=== PATIENT | male | born 1940 | race Caucasian/White ===

== ENCOUNTER 2016-09-30 18:13 | Emergency (ER) | payer MEDICARE, BC ==
[2016-09-30 18:34] VITALS: RESP 18
[2016-09-30] MEDS ORDERED: SODIUM CHLORIDE 0.9% 1,000 ML IV STA (18:40)
[2016-09-30] MEDS ORDERED: diphenhydrAMINE 50 MG/ML 1 ML VIAL IVP STA (18:40)
[2016-09-30] MEDS ORDERED: methylPREDNISolone SOD SUCCI 125 MG/2 ML VIAL IV STA (18:40)
[2016-09-30] MEDS ORDERED: FAMOTIDINE 20 MG/2 ML VIAL IV STA (18:40)
--- NOTE | 2016-09-30 18:45 | ED ---
Allergic Reaction HPI - General Chief complaint: Allergic Reaction Stated complaint: allergic reaction Time Seen by Provider: 09/30/16 18:36 Source: patient, RN notes reviewed Mode of arrival: ambulatory Limitations: no limitations - History of Present Illness Initial Comments: 76-year-old male presents to the emergency department with a chief complaint of ALLERGIC reaction. Patient states that today on 4:00 she noticed some right hand swelling and he noticed irritation in his throat. Patient states he felt as if his tongue was swollen as well. Patient states that seems to have improved but he just continued to have some throat irritation in the hand signs he thought that he should be seen. Patient denies any difficulty breathing. Denies any cough cold -like symptoms. He does not remember anything new or different in his house. Patient denies any recent fever, chills, shortness of breath, chest pain, back pain, abdominal pain, nausea vomiting, numbness or tingling, dysuria or hematuria, constipation or diarrhea, headaches or visual changes, or any other current symptoms. - Related Data Home Medications Medication Instructions Recorded Confirmed Aspirin 81 mg PO DAILY 10/28/13 11/26/13 Lisinopril-Hctz 20-12.5 mg 1 each PO DAILY 10/28/13 11/26/13 [Zestoretic 20-12.5] Lovastatin [Mevacor] 40 mg PO DAILY 10/28/13 11/26/13 Metoprolol Tartrate [Lopressor] 25 mg PO DAILY 10/28/13 11/26/13 Rivaroxaban [Xarelto] 10 mg PO DAILY 10/28/13 11/26/13 glyBURIDE/METFORMIN HCL 1.5 - 2 each PO DAILY 10/28/13 11/26/13 [glyBURIDE/METFORMIN HCL 5-500 mg] Previous Rx's Medication Instructions Recorded Famotidine [Pepcid] 20 mg PO BID #10 tablet 09/30/16 diphenhydrAMINE [Benadryl] 50 mg PO HS PRN #5 capsule 09/30/16 predniSONE 50 mg PO DAILY #5 tab 09/30/16 Allergies Allergy/AdvReac Type Severity Reaction Status Date / Time No Known Allergies Allergy Verified 09/30/16 19:39 Review of Systems ROS Statement: Those systems with pertinent positive or pertinent negative responses have been documented in the HPI. ROS Other: All systems not noted in ROS Statement are negative. Past Medical History Past Medical History: Diabetes Mellitus, GERD/Reflux, Hypertension, Skin Disorder Additional Past Medical History / Comment(s): AICD/PACEMAKER,DIVERTICULAR DISORDER, History of Any Multi-Drug Resistant Organisms: None Reported Past Surgical History: Heart Catheterization, Joint Replacement Additional Past Surgical History / Comment(s): COLONOSCOPY,HIP REPLACEMENT, AICD /DEFIBILLATOR INSERTION hip replacement and revision Past Anesthesia/Blood Transfusion Reactions: No Reported Reaction Smoking Status: Former smoker Past Alcohol Use History: None Reported Past Drug Use History: None Reported - Past Family History Mother Family Medical History: Unable to Obtain Father Family Medical History: Unable to Obtain General Exam Limitations: no limitations General appearance: alert, in no apparent distress Head exam: Present: atraumatic, normocephalic, normal inspection ENT exam: Present: normal exam, mucous membranes moist Neck exam: Present: normal inspection. Absent: tenderness, meningismus, lymphadenopathy Respiratory exam: Present: normal lung sounds bilaterally. Absent: respiratory distress, wheezes, rales, rhonchi, stridor Cardiovascular Exam: Present: regular rate, normal rhythm, normal heart sounds. Absent: systolic murmur, diastolic murmur, rubs, gallop, clicks Extremities exam: Present: full ROM, normal capillary refill. Absent: normal inspection (Patient does appear to have some swelling to the first second and third digit with some associated erythema to the right hand), tenderness, pedal edema, joint swelling, calf tenderness Back exam: Present: normal inspection Neurological exam: Present: alert, oriented X3, CN II-XII intact. Absent: motor sensory deficit Psychiatric exam: Present: normal affect, normal mood Skin exam: Present: warm, dry, intact, normal color. Absent: rash Course Vital Signs 09/30/16 09/30/16 18:30 19:12 Temperature 98.9 F Pulse Rate 102 H 96 Respiratory 18 18 Rate Blood Pressure 173/80 156/83 O2 Sat by Pulse 98 97 Oximetry Medical Decision Making - Medical Decision Making 76-year-old male presents emergency Department chief complaint of ALLERGIC reaction. At this time we did do Solu-Medrol Benadryl and Pepcid. Patient has had improvement of symptoms. This time we discussed searching the house for possible causes for the reaction. Discussed continuing medication as discussed previously discussed from comparison follow-up. Patient stated that he understood and all his questions have been answered. He will be discharged. Disposition Clinical Impression: Allergic reaction Disposition: HOME SELF-CARE Condition: Stable Instructions: Anaphylaxis (ED) Additional Instructions: Please use medication as discussed. Please follow up with family doctor if symptoms have not improved over the next two days. Please return to the emergency room if your symptoms increase or worsen or for any other concerns. Prescriptions: Famotidine [Pepcid] 20 mg PO BID #10 tablet diphenhydrAMINE [Benadryl] 50 mg PO HS PRN #5 capsule PRN Reason: Itching predniSONE 50 mg PO DAILY #5 tab Referrals: Oswaldo Colon MD [Primary Care Provider] - 1-2 days Time of Disposition: 19:42
[2016-09-30 19:53] VITALS: BP 132/70; PULSE 92; TEMP 97.9
== END 2016-09-30 19:51 | disposition home or self-care (01) ==
LOC: EC 18:13
DX: T78.40XA Allergy, unspecified, initial encounter (principal); E11.9 Type 2 diabetes mellitus without complications; I10 Essential (primary) hypertension; Z87.891 Personal history of nicotine dependence; Z79.82 Long term (current) use of aspirin; Z79.84 Long term (current) use of oral hypoglycemic drugs; Z79.899 Other long term (current) drug therapy; Z79.01 Long term (current) use of anticoagulants
CPT/HCPCS: 99283; 96374; 96375 ×2; 96361; J1200; J2930

== ENCOUNTER → 2017-01-09 | Outpatient (CLI) | payer MEDICARE, BC | END | disposition home or self-care (01) | LOC: LABWHC1 16:27 | PROVIDERS: ATTEND Orthopaedic Surgery | DX: T56.894A Toxic effect of other metals, undetermined, initial encounter (principal) | CPT/HCPCS: 36415 ==

== ENCOUNTER 2018-04-11 09:50 | Day surgery (SDC) | payer MEDICARE, BC ==
[2018-04-10 08:38] VITALS: BMI 25.0
[2018-04-11 10:19] VITALS: RESP 18; TEMP 97.9
[2018-04-11] MEDS ORDERED: LACTATED RINGERS 1,000 ML IV ONE (10:23)
[2018-04-11] MEDS ORDERED: LIDOCAINE 1% 20 ML VIAL (10MG/ML) FOR IV START INTRADERMA ONE (10:23)
[2018-04-11] MEDS ORDERED: PROPOFOL 10 MG/ML 20 ML VIAL IV ONE (10:28)
[2018-04-11] MEDS ORDERED: LIDOCAINE 1% INJ 10MG/ML (20 ML MDV) ONE (10:28)
[2018-04-11 10:35] LABS: Glucose,Whole Blood 92 mg/dL (75-99)
--- NOTE | 2018-04-11 10:48 | P.PCN ---
Date of Procedure: 04/11/18 Procedure(s) Performed: BRIEF HISTORY: Patient is a 77-year-old pleasant male, scheduled for an elective colonoscopy as a part of screening for colorectal neoplasia. Last colonoscopy was more than 10 years ago. PROCEDURE PERFORMED: Colonoscopy. PREOPERATIVE DIAGNOSIS: Screening for colon cancer. IV sedation per Anesthesia. PROCEDURE: After informed consent was obtained, the patient, was brought into the endoscopy unit. IV sedation was administered by Anesthesia under continuous monitoring. Digital rectal examination was normal. Initially the Olympus CF- 160 flexible video colonoscope was then inserted in the rectum, gradually advanced into the cecum without any difficulty. Careful examination was performed as the scope was gradually being withdrawn. Ileocecal valve and the appendiceal orifice were visualized and appeared normal. Prep was excellent. Mucosa of the cecum, ascending colon, transverse colon, descending colon, sigmoid colon, and rectum appeared normal. Extensive left sided diverticulosis seen. Retroflexion was performed in the rectum and no lesions were seen. The patient tolerated the procedure well. IMPRESSION: Normal-appearing colon from rectum to cecum with no evidence of colorectal neoplasia. Extensive left sided diverticulosis. RECOMMENDATIONS: Findings of this examination were discussed with the patient as well as his family. He was advised to be a high-fiber diet and take fiber supplements a regular basis..
[2018-04-11 11:27] VITALS: BP 115/56; PULSE 77
== END 2018-04-11 11:46 | disposition home or self-care (01) ==
LOC: ORWHC2ENDO 09:50
PROVIDERS: ATTEND Internal Medicine Gastroenterology
DX: Z12.11 Encounter for screening for malignant neoplasm of colon (principal); K57.30 Diverticulosis of large intestine without perforation or abscess without bleeding; I25.10 Atherosclerotic heart disease of native coronary artery without angina pectoris; K21.9 Gastro-esophageal reflux disease without esophagitis; E11.9 Type 2 diabetes mellitus without complications; I48.91 Unspecified atrial fibrillation; I10 Essential (primary) hypertension; E78.5 Hyperlipidemia, unspecified; Z79.84 Long term (current) use of oral hypoglycemic drugs; Z79.82 Long term (current) use of aspirin; Z79.899 Other long term (current) drug therapy; Z95.1 Presence of aortocoronary bypass graft; Z95.0 Presence of cardiac pacemaker; Z87.891 Personal history of nicotine dependence; Z87.442 Personal history of urinary calculi; Z85.820 Personal history of malignant melanoma of skin
CPT/HCPCS: J2001; J2704; G0121; 45378

== ENCOUNTER 2020-07-29 09:45 | Day surgery (SDC) | payer MEDICARE, BC ==
[2020-07-28 13:52] VITALS: BMI 23.8
[~2020-07-29 09:45] MED LIST: SODIUM CHLORIDE 0.9% 1,000 ML IV SCH
[2020-07-29 10:06] VITALS: RESP 16; TEMP 97.6
[2020-07-29] MEDS ORDERED: SODIUM CHLORIDE 0.9% 500 ML IV ONE (10:06)
[2020-07-29 10:08] LABS: Glucose,Whole Blood 210 mg/dL (75-99)
[2020-07-29] MEDS ORDERED: IOPAMIDOL-370 50ML BTL MISCELLANE ONE (11:11)
--- NOTE | 2020-07-29 11:20 | P.EPPROC ---
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
[2020-07-29 11:26] VITALS: BP 155/76; PULSE 70
== END 2020-07-29 11:34 | disposition home or self-care (01) ==
LOC: CATHEP 09:45
PROVIDERS: ATTEND Internal Medicine Clinical Cardiac Electrophysiology
DX: T82.897A Other specified complication of cardiac prosthetic devices, implants and grafts, initial encounter (principal); I70.8 Atherosclerosis of other arteries; I87.8 Other specified disorders of veins; Z95.810 Presence of automatic (implantable) cardiac defibrillator; I25.10 Atherosclerotic heart disease of native coronary artery without angina pectoris; I42.8 Other cardiomyopathies; I25.5 Ischemic cardiomyopathy; E11.8 Type 2 diabetes mellitus with unspecified complications; I10 Essential (primary) hypertension; I48.0 Paroxysmal atrial fibrillation; I47.1 Supraventricular tachycardia; I25.2 Old myocardial infarction; E78.5 Hyperlipidemia, unspecified; R01.1 Cardiac murmur, unspecified; E78.00 Pure hypercholesterolemia, unspecified; Z95.1 Presence of aortocoronary bypass graft; Z72.0 Tobacco use; Z79.899 Other long term (current) drug therapy; Z79.82 Long term (current) use of aspirin; Z79.84 Long term (current) use of oral hypoglycemic drugs; Z79.01 Long term (current) use of anticoagulants
CPT/HCPCS: 36005; 75820; Q9967; 76000

== ENCOUNTER 2020-11-05 16:59 | Inpatient (IN) | payer MEDICARE, BC ==
[2020-11-05] MEDS ORDERED: IPRATROPIUM-ALBUTEROL 3 ML NEB INHALATION STA (18:01)
--- NOTE | 2020-11-05 18:14 | ED ---
SOB HPI - General Chief Complaint: Shortness of Breath Stated Complaint: DIA Time Seen by Provider: 11/05/20 17:04 Source: patient, RN notes reviewed Mode of arrival: wheelchair Limitations: no limitations - History of Present Illness Initial Comments: Visit 8-year-old male smoker many years ago with a history of multiple medical issues who presents with complaints of shortness of breath this started last evening. He has exertional dyspnea no chest pain no fevers chills nausea vomiting sweats he states he can hear himself wheezing when he exhales. He has had slight cough no other complaints or modifying factors MD Complaint: shortness of breath - Related Data Home Medications Medication Instructions Recorded Confirmed Lovastatin [Mevacor] 40 mg PO W/SUPPER 10/28/13 11/05/20 Rivaroxaban [Xarelto] 20 mg PO W/SUPPER 09/30/16 11/05/20 Aspirin [Adult Low Dose Aspirin EC] 81 mg PO DAILY 04/10/18 11/05/20 Losartan Potassium [Cozaar] 100 mg PO DAILY 04/10/18 11/05/20 Metoprolol Tartrate [Lopressor] 50 mg PO BID 04/10/18 11/05/20 glipiZIDE/METFORMIN HCL 2 tab PO BID 11/05/20 11/05/20 [glipiZIDE/METFORMIN HCL 5-500 mg] Allergies Allergy/AdvReac Type Severity Reaction Status Date / Time No Known Allergies Allergy Verified 11/05/20 19:42 Review of Systems ROS Statement: Those systems with pertinent positive or pertinent negative responses have been documented in the HPI. ROS Other: All systems not noted in ROS Statement are negative. Past Medical History Past Medical History: Atrial Fibrillation, Coronary Artery Disease (CAD), Cancer, Diabetes Mellitus, GERD/Reflux, Hyperlipidemia, Hypertension, Skin Disorder Additional Past Medical History / Comment(s): skin cancer/melanoma, hx kidney stone, see Dr. Knutson's H&P. History of Any Multi-Drug Resistant Organisms: None Reported Past Surgical History: AICD, Coronary Bypass/CABG, Heart Catheterization, Joint Replacement, Pacemaker Additional Past Surgical History / Comment(s): quad bypass 2013, skin cancer removed from around left eye, cystoscopy, left hip replacement, clari cataracts. See Dr. Velázquez's H&P. Past Anesthesia/Blood Transfusion Reactions: No Reported Reaction Type of Cardiac Device: Permanent Pacemaker, AICD Device Placement Date:: 04/2007 Past Psychological History: No Psychological Hx Reported Smoking Status: Former smoker Past Alcohol Use History: None Reported Past Drug Use History: None Reported - Past Family History Father Family Medical History: Cancer Additional Family Medical History / Comment(s): "black lung cancer" General Exam - General Exam Comments Initial Comments: This is a well-developed well-nourished awake alert oriented 3 male Limitations: no limitations General appearance: alert, in no apparent distress Head exam: Present: atraumatic, normocephalic, normal inspection Eye exam: Present: normal appearance, PERRL, EOMI. Absent: scleral icterus, conjunctival injection, periorbital swelling ENT exam: Present: normal exam, mucous membranes moist Neck exam: Present: normal inspection. Absent: tenderness, meningismus, lymphadenopathy Respiratory exam: Present: wheezes, decreased breath sounds. Absent: respiratory distress, rales, rhonchi, stridor Cardiovascular Exam: Present: regular rate, normal rhythm, normal heart sounds. Absent: systolic murmur, diastolic murmur, rubs, gallop, clicks GI/Abdominal exam: Present: soft, normal bowel sounds. Absent: distended, tenderness, guarding, rebound, rigid Extremities exam: Present: normal inspection, full ROM, normal capillary refill. Absent: tenderness, pedal edema, joint swelling, calf tenderness Back exam: Present: normal inspection Neurological exam: Present: alert, oriented X3, CN II-XII intact Psychiatric exam: Present: normal affect, normal mood Skin exam: Present: warm, dry, intact, normal color. Absent: rash Course Vital Signs 11/05/20 11/05/20 11/05/20 17:14 18:31 18:41 Temperature 97.5 F L Pulse Rate 91 70 70 Respiratory 18 Rate Blood Pressure 151/90 O2 Sat by Pulse 99 Oximetry 11/05/20 11/05/20 18:49 20:23 Temperature 97.4 F L Pulse Rate 76 Respiratory 18 16 Rate Blood Pressure 173/92 O2 Sat by Pulse 96 Oximetry - Reevaluation(s) Reevaluation #1: 11/05/20 21:24 Patient did seem to get some relief and improvement after nebulizer treatment. Medical Decision Making - Medical Decision Making I did discuss findings the patient family as well as with Dr. Stevens the patient be admitted for inpatient evaluation and treatment. The patient did also mention that his pacemaker battery is beyond the usual time of service. - Lab Data Result diagrams: 11/05/20 18:14 11/05/20 18:14 Lab Results 11/05/20 11/05/20 11/05/20 Range/Units 18:14 18:14 18:14 WBC 6.9 (3.8-10.6) k/uL RBC 4.65 (4.30-5.90) m/uL Hgb 14.0 (13.0-17.5) gm/dL Hct 43.5 (39.0-53.0) % MCV 93.7 (80.0-100.0) fL MCH 30.1 (25.0-35.0) pg MCHC 32.2 (31.0-37.0) g/dL RDW 14.4 (11.5-15.5) % Plt Count 212 (150-450) k/uL MPV 9.7 Neutrophils % 66 % Lymphocytes % 19 % Monocytes % 12 % Eosinophils % 1 % Basophils % 1 % Neutrophils # 4.6 (1.3-7.7) k/uL Lymphocytes # 1.3 (1.0-4.8) k/uL Monocytes # 0.8 (0-1.0) k/uL Eosinophils # 0.1 (0-0.7) k/uL Basophils # 0.0 (0-0.2) k/uL PT 13.9 H (9.0-12.0) sec INR 1.4 H (<1.2) APTT 31.9 H (22.0-30.0) sec D-Dimer 1.71 H (<0.60) mg/L FEU Sodium 137 (137-145) mmol/L Potassium 4.6 (3.5-5.1) mmol/L Chloride 104 (98-107) mmol/L Carbon Dioxide 21 L (22-30) mmol/L Anion Gap 12 mmol/L BUN 24 H (9-20) mg/dL Creatinine 1.28 H (0.66-1.25) mg/dL Est GFR (CKD-EPI)AfAm 61 (>60 ml/min/1.73 sqM) Est GFR (CKD-EPI)NonAf 53 (>60 ml/min/1.73 sqM) Glucose 111 H (74-99) mg/dL Plasma Lactic Acid Santiago (0.7-2.0) mmol/L Calcium 10.0 (8.4-10.2) mg/dL Magnesium 1.6 (1.6-2.3) mg/dL Total Bilirubin 0.9 (0.2-1.3) mg/dL AST 49 (17-59) U/L ALT 39 (4-49) U/L Alkaline Phosphatase 90 (38-126) U/L Creatine Kinase 212 H (55-170) U/L Troponin I (0.000-0.034) ng/mL NT-Pro-B Natriuret Pep pg/mL Total Protein 7.2 (6.3-8.2) g/dL Albumin 4.4 (3.5-5.0) g/dL 11/05/20 11/05/20 11/05/20 Range/Units 18:14 18:14 18:14 WBC (3.8-10.6) k/uL RBC (4.30-5.90) m/uL Hgb (13.0-17.5) gm/dL Hct (39.0-53.0) % MCV (80.0-100.0) fL MCH (25.0-35.0) pg MCHC (31.0-37.0) g/dL RDW (11.5-15.5) % Plt Count (150-450) k/uL MPV Neutrophils % % Lymphocytes % % Monocytes % % Eosinophils % % Basophils % % Neutrophils # (1.3-7.7) k/uL Lymphocytes # (1.0-4.8) k/uL Monocytes # (0-1.0) k/uL Eosinophils # (0-0.7) k/uL Basophils # (0-0.2) k/uL PT (9.0-12.0) sec INR (<1.2) APTT (22.0-30.0) sec D-Dimer (<0.60) mg/L FEU Sodium (137-145) mmol/L Potassium (3.5-5.1) mmol/L Chloride (98-107) mmol/L Carbon Dioxide (22-30) mmol/L Anion Gap mmol/L BUN (9-20) mg/dL Creatinine (0.66-1.25) mg/dL Est GFR (CKD-EPI)AfAm (>60 ml/min/1.73 sqM) Est GFR (CKD-EPI)NonAf (>60 ml/min/1.73 sqM) Glucose (74-99) mg/dL Plasma Lactic Acid Santiago 1.6 (0.7-2.0) mmol/L Calcium (8.4-10.2) mg/dL Magnesium (1.6-2.3) mg/dL Total Bilirubin (0.2-1.3) mg/dL AST (17-59) U/L ALT (4-49) U/L Alkaline Phosphatase (38-126) U/L Creatine Kinase (55-170) U/L Troponin I 0.016 (0.000-0.034) ng/mL NT-Pro-B Natriuret Pep 5450 pg/mL Total Protein (6.3-8.2) g/dL Albumin (3.5-5.0) g/dL - EKG Data -: EKG Interpreted by Me EKG Comments: Pacemaker rate 68 appear 132 QRS 148 QT since QTC 466/495 - Radiology Data Radiology results: report reviewed (Imaging reviewed x-ray showed evidence of CHF and pleural effusion CAT scan showed no evidence of PE however there is again he evidence of PE), image reviewed Critical Care Time Critical Care Time: Yes Total Critical Care Time: 31 Critical Care Time: 31 minutes of critical care time includes initial presentation with history physical labs x-rays multiple reevaluation patient responsive therapy discuss with the patient and family regarding findings discussion with the admitting physician Dr. Stevens admission orders and documentation the above Disposition Clinical Impression: Congestive heart failure, Acute bronchospasm, Hypoxemia Disposition: ADMITTED IP TO THIS [facility] Condition: Fair Referrals: Oswaldo Colon MD [Primary Care Provider] - 1-2 days
[2020-11-05 18:36] LABS: Albumin 4.4 g/dL (3.5-5.0); Magnesium 1.6 mg/dL (1.6-2.3); Potassium 4.6 mmol/L (3.5-5.1); Total Bilirubin 0.9 mg/dL (0.2-1.3); Total Protein 7.2 g/dL (6.3-8.2)
[2020-11-05 18:41] LABS: Basophils % (A) 1 %; Eosinophils # (A) 0.1 k/uL (0-0.7); Eosinophils % (A) 1 %; HCT 43.5 % (39.0-53.0); Lymphocytes # (A) 1.3 k/uL (1.0-4.8); Lymphocytes % (A) 19 %; MCH 30.1 pg (25.0-35.0); MCHC 32.2 g/dL (31.0-37.0); MCV 93.7 fL (80.0-100.0); Mean Platelet Volume 9.7; Monocytes # (A) 0.8 k/uL (0-1.0); Monocytes % (A) 12 %; Neutrophils # (A) 4.6 k/uL (1.3-7.7); Neutrophils % (A) 66 %; Platelet Count 212 k/uL (150-450); RBC 4.65 m/uL (4.30-5.90); RDW 14.4 % (11.5-15.5); WBC 6.9 k/uL (3.8-10.6)
--- NOTE | 2020-11-05 18:44 | XR ---
EXAMINATION TYPE: XR chest 2V DATE OF EXAM: 11/05/2020 COMPARISON: NONE HISTORY: Difficulty breathing TECHNIQUE: 2 views FINDINGS: There is some pulmonary vascular congestion. There is left axillary region make her. There are chest leads. There is blunting of the costophrenic angles. There are sternal wires. IMPRESSION: Mild congestive heart failure with small pleural effusions. Heart failure appears new com pared to old exam.
[2020-11-05 18:51] LABS: INR 1.4 (<1.2); Prothrombin Time 13.9 sec (9.0-12.0)
[2020-11-05 18:52] LABS: Partial Thromboplastin Time 31.9 sec (22.0-30.0)
[2020-11-05] MEDS ORDERED: FUROSEMIDE 10 MG/ML 4 ML VIAL IV STA (19:00)
--- NOTE | 2020-11-05 21:16 | CT ---
EXAMINATION TYPE: CT angio chest DATE OF EXAM: 11/05/2020 COMPARISON: None HISTORY: Elevated d-dimer, dyspnea. Cardiac hx CT DLP: 316.9 mGycm Automated exposure control for dose reduction was used. CONTRAST: Performed with IV Contrast, patient injected with 80 mL of Isovue 370. Images obtained from the thoracic inlet to the diaphragm with IV contrast. There are 3-D post process ed images. There are bilateral pleural effusions. Heart size is normal. There is no pericardial effusion. There is bilateral infiltrates in the lower lung mancilla. There is normal contrast opacification of the pulmonary arteries. I see no filling defect. Thoracic a joseph is atheromatous. There is no aneurysm. The ascending aorta measures 3.5 cm. There are no hilar m asses. There is some spurring in the thoracic spine. IMPRESSION: No evidence of pulmonary embolism. Bilateral pleural effusions with bilateral pulmonary infiltrates a nd atelectasis probably due to chronic congestive heart failure. Atherosclerotic vascular disease.
[2020-11-05] MEDS: FUROSEMIDE 10 MG/ML 4 ML VIAL IV SCH (21:53)
[2020-11-05 23:12] LABS: Glucose,Whole Blood 102 mg/dL (75-99)
[2020-11-06 06:27] LABS: Glucose,Whole Blood 118 mg/dL (75-99)
[2020-11-06] MEDS: FUROSEMIDE 10 MG/ML 4 ML VIAL IV SCH ×2 (09:03→20:15)
[2020-11-06] MEDS: LOSARTAN 50 MG TAB PO SCH (09:03)
[2020-11-06] MEDS: METOPROLOL TARTRATE 50 MG TAB PO SCH ×2 (09:03→20:16)
[2020-11-06] MEDS: ASPIRIN 81 MG PO SCH (09:03)
[2020-11-06] MEDS: glipiZIDE 5 MG TAB PO SCH ×2 (09:31→20:16)
[2020-11-06] MEDS: metFORMIN 500 MG TAB PO SCH ×2 (09:31→20:16)
--- NOTE | 2020-11-06 10:22 | ECHOF ---
Referral Reason:Heart Failure MEASUREMENTS -------- HEIGHT: 170.2 cm WEIGHT: 45.8 kg BP: RVIDd: 3.3 cm (< 3.3) IVSd: 1.2 cm (0.6 - 1.1) LVIDd: 5.3 cm (3.9 - 5.3) LVPWd: 1.1 cm (0.6 - 1.1) IVSs: 1.3 cm LVIDs: 4.9 cm LVPWs: 1.3 cm LA Diam: 3.1 cm (2.7 - 3.8) LAESV Index (A-L): 50.81 ml/m Ao Diam: 3.5 cm (2.0 - 3.7) AV Cusp: 1.7 cm (1.5 - 2.6) MV EXCURSION: 19.783 mm (> 18.000) MV EF SLOPE: 77 mm/s (70 - 150) EPSS: 1.2 cm MV E Adama: 0.86 m/s MV DecT: 143 ms MV A Adama: 0.82 m/s MV E/A Ratio: 1.04 RAP: 5.00 mmHg RVSP: 43.76 mmHg FINDINGS -------- Pacerwire seen in RV and RA. This was a technically good study. The left ventricular size is normal. Overall left ventricular systolic function is severely impaire d with, an EF between 25 - 30 %. The right ventricle is normal in size. LA is severely dilated >40 ml/m2 The right atrial size is normal. There is mild aortic valve sclerosis. There is no evidence of aortic regurgitation. The mitral valve leaflets are mildly thickened. Mild mitral annular calcification present. Mild m itral regurgitation is present. Mild tricuspid regurgitation present. There is mild pulmonary hypertension. The right ventricular systolic pressure, as measured by Doppler, is 43.76mmHg. Trace/mild (physiologic) pulmonic regurgitation. The aortic root size is normal. There is no pericardial effusion. CONCLUSIONS -------- 1. Pacerwire seen in RV and RA. 2. The left ventricular size is normal. 3. Overall left ventricular systolic function is severely impaired with, an EF between 25 - 30 %. 4. The right ventricle is normal in size. 5. LA is severely dilated >40 ml/m2 6. The right atrial size is normal. 7. There is mild aortic valve sclerosis. 8. The mitral valve leaflets are mildly thickened. 9. Mild mitral annular calcification present. 10. Mild mitral regurgitation is present. 11. Mild tricuspid regurgitation present. 12. There is mild pulmonary hypertension. 13. The right ventricular systolic pressure, as measured by Doppler, is 43.76mmHg. 14. Trace/mild (physiologic) pulmonic regurgitation. 15. The aortic root size is normal. 16. There is no pericardial effusion. CERTIFIED ORTHOTIC FITTER: Ute Lgauna RDCS
--- NOTE | 2020-11-06 10:49 | P.HPIM ---
History of Present Illness H&P Date: 11/06/20 Chief Complaint: shortness of breath This is an 80-year-old male, patient of Dr. Garces with a past medical history of atrial fibrillation, coronary artery disease, status post quadruple bypass in 2013 with AICD, diabetes, GERD, hyperlipidemia, hypertension, and melanoma. Patient reports he had developed some shortness of breath that started yesterday. Patient reports yesterday morning he felt short of breath but was able to play a round of golf, when he got home he had worsening dyspnea especially with any exertion. He also started to develop wheezing and cough. He then proceeded to go to the emergency department. Patient had an x-ray that showed mild congestive heart failure with small pleural effusions. He also underwent a CTA that was negative for pulmonary embolism, showed bilateral pleural effusions with bilateral pulmonary infiltrates and atelectasis and atherosclerotic valvular disease. Laboratory values showed WBC 6.9 hemoglobin 14, potassium 4.6, BUN 44, creatinine 1.8, troponin less than 0.012, 0.017, BNP 5450, COVID was negative. Patient has been admitted to the hospital cardiology on consult, he is receiving furosemide 40 mg IV every 12 hours, I&O's. Echocardiogram completed shows left ventricular systolic function is severely impaired with an EF between 25 and 30%, LA severely dilated, mild aortic sclerosis, mild mitral regurgitation, mild tricuspid regurgitation, mild pulmonary hypertension. Review of Systems Constitutional: Reports fatigue, Denies chills, Denies fever Ears, nose, mouth and throat: Denies dysphagia, Denies headache, Denies nasal discharge, Denies sinus pain, Denies sinus pressure, Denies sore throat Cardiovascular: Reports decreased exercise tolerance, Reports dyspnea on exertion, Reports orthopnea, Reports shortness of breath, Denies chest pain, Denies irregular heart beat, Denies leg edema, Denies palpitations, Denies rapid heart beat, Denies syncope Respiratory: Denies congestion Gastrointestinal: Denies belching, Denies bloating, Denies constipation, Denies diarrhea, Denies dyspepsia, Denies nausea, Denies vomiting Genitourinary: Denies dysuria, Denies hematuria, Denies incontinence, Denies nocturia, Denies urinary retention Musculoskeletal: Denies atrophy, Denies gait dysfunction, Denies low back pain, Denies muscle cramps, Denies muscle weakness, Denies neck pain Integumentary: Denies growths, Denies lesions, Denies pruritus, Denies rash, Denies sores, Denies wounds Neurological: Denies change in smell/taste, Denies change in speech, Denies con fusion, Denies double vision, Denies gait dysfunction, Denies memory loss, Denies migraines, Denies motor disturbance, Denies paralysis, Denies paresthesias, Denies tremors, Denies vertigo Psychiatric: Denies anxiety, Denies change in sleep habits, Denies confusion, Denies depression, Denies difficulty concentrating, Denies insomnia, Denies irritability, Denies memory loss, Denies mood swings, Denies sadness/tearfulness Endocrine: Denies excessive thirst, Denies fatigue, Denies flushing, Denies heat intolerance, Denies nocturia, Denies palpitations, Denies polyphagia, Denies polyuria, Denies weight change Past Medical History Past Medical History: Atrial Fibrillation, Coronary Artery Disease (CAD), Ca ncer, Diabetes Mellitus, GERD/Reflux, Hyperlipidemia, Hypertension, Skin Disorder Additional Past Medical History / Comment(s): skin cancer/melanoma, hx kidney stone, see Dr. Knutson's H&P. History of Any Multi-Drug Resistant Organisms: None Reported Past Surgical History: AICD, Coronary Bypass/CABG, Heart Catheterization, Joint Replacement, Pacemaker Additional Past Surgical History / Comment(s): quad bypass 2013, skin cancer removed from around left eye, cystoscopy, left hip replacement, clari cataracts. See Dr. Velázquez's H&P. Past Anesthesia/Blood Transfusion Reactions: No Reported Reaction Type of Cardiac Device: Permanent Pacemaker, AICD Device Placement Date:: 04/2007 Past Psychological History: No Psychological Hx Reported Smoking Status: Former smoker Past Alcohol Use History: None Reported Additional Past Alcohol Use History / Comment(s): quit smoking 30 yrs ago, smoked from age 18 to age 40's, 1 PPD Past Drug Use History: None Reported - Past Family History Father Family Medical History: Cancer Additional Family Medical History / Comment(s): "black lung" and lung cancer Mother Family Medical History: Diabetes Mellitus Additional Family Medical History / Comment(s): at age 80 from complications of congestive heart failure and diabetes Daughter(s) Family Medical History: Diabetes Mellitus Son(s) Family Medical History: Diabetes Mellitus Medications and Allergies Home Medications Medication Instructions Recorded Confirmed Type Lovastatin [Mevacor] 40 mg PO W/SUPPER 10/28/13 11/05/20 History Rivaroxaban [Xarelto] 20 mg PO W/SUPPER 09/30/16 11/05/20 History Aspirin [Adult Low Dose Aspirin EC] 81 mg PO DAILY 04/10/18 11/05/20 History Losartan Potassium [Cozaar] 100 mg PO DAILY 04/10/18 11/05/20 History Metoprolol Tartrate [Lopressor] 50 mg PO BID 04/10/18 11/05/20 History glipiZIDE/METFORMIN HCL 2 tab PO BID 11/05/20 11/05/20 History [glipiZIDE/METFORMIN HCL 5-500 mg] Allergies Allergy/AdvReac Type Severity Reaction Status Date / Time No Known Allergies Allergy Verified 11/05/20 19:42 Physical Exam Vitals: Vital Signs Temp Pulse Pulse Resp BP BP Pulse Ox 11/06/20 04:00 98.2 F 80 18 122/67 92 L 11/06/20 02:00 78 18 11/06/20 00:00 98.3 F 78 18 181/95 97 11/05/20 21:58 98.3 F 78 18 181/95 97 11/05/20 21:53 80 18 180/89 97 11/05/20 20:23 97.4 F L 76 16 173/92 96 11/05/20 18:49 18 11/05/20 18:41 70 11/05/20 18:31 70 11/05/20 17:14 97.5 F L 91 18 151/90 99 Intake and Output 11/05/20 11/06/20 11/06/20 22:59 06:59 14:59 Intake Total 50 250 Balance 50 250 Intake: Oral 50 250 Other: # Voids 1 2 Weight 46 kg - Constitutional General appearance: cooperative, no acute distress - EENT Eyes: EOMI, PERRLA, normal appearance ENT: hearing grossly normal, normal oropharynx - Neck Neck: no lymphadenopathy, normal ROM, no rigidity, no stridor, no thyromegaly - Respiratory Respiratory: bilateral: diminished, rales, negative: wheezing - Cardiovascular Rhythm: regular Heart sounds: normal: S1, S2 Abnormal Heart Sounds: no systolic murmur, no diastolic murmur - Gastrointestinal General gastrointestinal: no distended, no hepatomegaly, normal bowel sounds, no organomegaly, no rigid, soft, no splenomegaly, no tenderness - Neurologic Neurologic: CNII-XII intact - Musculoskeletal Musculoskeletal: no generalized weakness, strength equal bilaterally - Psychiatric Psychiatric: A&O x's 3, appropriate affect, intact judgment & insight Results CBC & Chem 7: 11/07/20 07:31 11/07/20 07:31 Labs: Abnormal Lab Results - Last 24 Hours (Table) 11/05/20 11/05/20 11/05/20 Range/Units 18:14 18:14 23:09 PT 13.9 H (9.0-12.0) sec INR 1.4 H (<1.2) APTT 31.9 H (22.0-30.0) sec D-Dimer 1.71 H (<0.60) mg/L FEU Carbon Dioxide 21 L (22-30) mmol/L BUN 24 H (9-20) mg/dL Creatinine 1.28 H (0.66-1.25) mg/dL Glucose 111 H (74-99) mg/dL POC Glucose (mg/dL) 102 H (75-99) mg/dL Creatine Kinase 212 H (55-170) U/L 11/06/20 Range/Units 06:10 PT (9.0-12.0) sec INR (<1.2) APTT (22.0-30.0) sec D-Dimer (<0.60) mg/L FEU Carbon Dioxide (22-30) mmol/L BUN (9-20) mg/dL Creatinine (0.66-1.25) mg/dL Glucose (74-99) mg/dL POC Glucose (mg/dL) 118 H (75-99) mg/dL Creatine Kinase (55-170) U/L Thrombosis Risk Factor Assmnt - Choose All That Apply Any of the Below Risk Factors Present?: Yes Each Factor Represents 1 point: Heart failure (<1month) Other Risk Factors: Yes Each Risk Factor Represents 3 Points: Age 75 years or older Other congenital or acquired thrombophilia - If yes, enter type in comment: No Thrombosis Risk Factor Assessment Total Risk Factor Score: 4 Thrombosis Risk Factor Assessment Level: Moderate Risk Assessment and Plan Plan: 1. Acute on chronic systolic congestive heart failure with an ejection fraction between 25-30%. Echo completed. Cardiology consult added, will continue aspirin 81 mg, furosemide 40 mg every 12 hours, losartan 100 mg daily, Lopressor 50 mg twice a day. Last echo from November 2019 showed ejection fraction of 40-45% 2. Coronary artery disease. Status post quadruple bypass in 2013. Continue current management 3. Ischemic cardiomyopathy with biventricular ICD. Recent device check showed low battery life and lead impedance. Consult with cardiology, may need to be interrogated again. 4. History of proximal atrial fibrillation. Continue metoprolol to 50 mg twice a day and Xartelo 20mg 5. Diabetes mellitus type 2 area continue glipizide 10 mg twice a day along with metformin 1000 mg twice a day. 6. Hyperlipidemia. Lipitor 10 mg daily 7. GERD. Pantoprazole 40 mg daily 8. Stage II chronic kidney disease. Will continue to monitor kidney function closely 9. GI prophylaxis. Pantoprazole 10. DVT prophylaxis. Xarelto 20mg daily The above impression and plan of care have been discussed and directed by signing physician. Ary Yarbrough nurse practitioner acting as scribe for signing physician.
[2020-11-06 11:44] LABS: Glucose,Whole Blood 285 mg/dL (75-99)
[2020-11-06 12:42] VITALS: BMI 22.9
--- NOTE | 2020-11-06 13:19 | P.CRDCN ---
History of Present Illness History of present illness: HISTORY OF PRESENTING ILLNESS This is a pleasant 80-year-old male with a history of ischemic cardiomyopathy, coronary artery disease status post CABG, biventricular AICD, increasing RV thresholds, diabetes mellitus, paroxysmal atrial fibrillation, melanoma. Patient normally follows in the office with Dr. Velázquez. Patient has done fairly well after his bypass and does not get much angina. He does have a biventricular AICD over the RV thresholds have been increasing and therefore angiogram was performed a few months ago which showed innominate stenosis and therefore no adjustments were made. He had been doing fairly well up until 3 weeks ago he states he was walking, going about his day and then started feeling palpitations like his heart was beating real fast and then felt a shock. He has never had AICD discharge previously. 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 He then had done fairly well however will last 2 days has had new worsening shortness breath. He denies any changes in his medications. Denies any fevers, chills, cough. Denies any palpitations. He was given IV diuretics and feels somewhat better today. CTA showed no PE and bilateral pleural effu sions and pulmonary vascular congestion. REVIEW OF SYSTEMS At the time of my exam: CONSTITUTIONAL: Denies fever or chills. CARDIOVASCULAR: Denies chest pain, +shortness of breath, no orthopnea, PND or palpitations. RESPIRATORY: Denies cough. GASTROINTESTINAL: Denies abdominal pain, diarrhea, constipation, nausea or vomiting. MUSCULOSKELETAL: Denies myalgias. NEUROLOGIC: Denies numbness, tingling or weakness. ENDOCRINE: Denies fatigue, weight change, polydipsia or polyurina. GENITOURINARY: Denies burning, hematuria or urgency with micturation. HEMATOLOGIC: Denies history of anemia or bleeding. PHYSICAL EXAMINATION Vital signs reviewed. CONSTITUTIONAL: No apparent distress. HEENT: Head is normocephalic. Pupils are equal, round. Sclerae anicteric. Mucous membranes of the mouth are moist. No JVD. No carotid bruit. CHEST EXAMINATION: Lungs are clear to auscultation. No chest wall tenderness is noted on palpation or with deep breathing. HEART EXAMINATION: Regular rate and rhythm. S1, S2 heard. No murmurs, gallops or rub. ABDOMEN: Soft, nontender. Positive bowel sounds. EXTREMITIES: 2+ peripheral pulses, no lower extremity edema and no calf tenderness. NEUROLOGIC EXAMINATION: Patient is awake, alert and oriented x3. ASSESSMENT 1. Acute on chronic systolic heart failure 2. Ischemic cardiomyopathy status post biventricular AICD 3. Palpitations and what felt like a shock, likely consistent with AICD discharge 3 weeks ago 4. Chronic kidney disease 5. Coronary artery disease status post CABG, no current angina 6. Paroxysmal atrial fibrillation, currently sinus rhythm 7. Increasing RV thresholds with recent venogram showing innominate stenosis PLAN Check 2-D echo. Continue IV diuresis. Monitor ins and outs. Low sodium diet. Optimize heart failure regimen as able. Interrogate AICD as it appears he likely had an AICD discharge approximately 3 weeks ago. Further recommendations to follow. Past Medical History Past Medical History: Atrial Fibrillation, Coronary Artery Disease (CAD), Cancer, Diabetes Mellitus, GERD/Reflux, Hyperlipidemia, Hypertension, Skin Disorder Additional Past Medical History / Comment(s): skin cancer/melanoma, hx kidney stone, see Dr. Knutson's H&P. History of Any Multi-Drug Resistant Organisms: None Reported Past Surgical History: AICD, Coronary Bypass/CABG, Heart Catheterization, Joint Replacement, Pacemaker Additional Past Surgical History / Comment(s): quad bypass 2013, skin cancer removed from around left eye, cystoscopy, left hip replacement, clari cataracts. See Dr. Velázquez's H&P. Past Anesthesia/Blood Transfusion Reactions: No Reported Reaction Type of Cardiac Device: Permanent Pacemaker, AICD Device Placement Date:: 04/2007 Past Psychological History: No Psychological Hx Reported Smoking Status: Former smoker Past Alcohol Use History: None Reported Additional Past Alcohol Use History / Comment(s): quit smoking 30 yrs ago, smoked from age 18 to age 40's, 1 PPD Past Drug Use History: None Reported - Past Family History Father Family Medical History: Cancer Additional Family Medical History / Comment(s): "black lung" and lung cancer Mother Family Medical History: Diabetes Mellitus Additional Family Medical History / Comment(s): at age 80 from complications of congestive heart failure and diabetes Daughter(s) Family Medical History: Diabetes Mellitus Son(s) Family Medical History: Diabetes Mellitus Medications and Allergies Home Medications Medication Instructions Recorded Confirmed Type Lovastatin [Mevacor] 40 mg PO W/SUPPER 10/28/13 11/05/20 History Rivaroxaban [Xarelto] 20 mg PO W/SUPPER 09/30/16 11/05/20 History Aspirin [Adult Low Dose Aspirin EC] 81 mg PO DAILY 04/10/18 11/05/20 History Losartan Potassium [Cozaar] 100 mg PO DAILY 04/10/18 11/05/20 History Metoprolol Tartrate [Lopressor] 50 mg PO BID 04/10/18 11/05/20 History glipiZIDE/METFORMIN HCL 2 tab PO BID 11/05/20 11/05/20 History [glipiZIDE/METFORMIN HCL 5-500 mg] Allergies Allergy/AdvReac Type Severity Reaction Status Date / Time No Known Allergies Allergy Verified 11/05/20 19:42 Physical Exam Vitals: Vital Signs Temp Pulse Pulse Resp BP BP Pulse Ox 11/06/20 08:00 97.6 F 72 18 134/71 97 11/06/20 04:00 98.2 F 80 18 122/67 92 L 11/06/20 02:00 78 18 11/06/20 00:00 98.3 F 78 18 181/95 97 11/05/20 21:58 98.3 F 78 18 181/95 97 11/05/20 21:53 80 18 180/89 97 11/05/20 20:23 97.4 F L 76 16 173/92 96 11/05/20 18:49 18 11/05/20 18:41 70 11/05/20 18:31 70 11/05/20 17:14 97.5 F L 91 18 151/90 99 Intake and Output 11/05/20 11/06/20 11/06/20 22:59 06:59 14:59 Intake Total 50 250 260 Balance 50 250 260 Intake: Oral 50 250 260 Other: # Voids 1 2 Weight 46 kg Results 11/05/20 18:14 11/05/20 18:14 Cardiac Enzymes 11/05/20 11/05/20 11/05/20 Range/Units 18:14 18:14 21:42 AST 49 (17-59) U/L Troponin I 0.016 <0.012 (0.000-0.034) ng/mL 11/06/20 Range/Units 00:49 AST (17-59) U/L Troponin I 0.017 (0.000-0.034) ng/mL Coagulation 11/05/20 Range/Units 18:14 PT 13.9 H (9.0-12.0) sec APTT 31.9 H (22.0-30.0) sec CBC 11/05/20 Range/Units 18:14 WBC 6.9 (3.8-10.6) k/uL RBC 4.65 (4.30-5.90) m/uL Hgb 14.0 (13.0-17.5) gm/dL Hct 43.5 (39.0-53.0) % Plt Count 212 (150-450) k/uL Comprehensive Metabolic Panel 11/05/20 Range/Units 18:14 Sodium 137 (137-145) mmol/L Potassium 4.6 (3.5-5.1) mmol/L Chloride 104 (98-107) mmol/L Carbon Dioxide 21 L (22-30) mmol/L BUN 24 H (9-20) mg/dL Creatinine 1.28 H (0.66-1.25) mg/dL Glucose 111 H (74-99) mg/dL Calcium 10.0 (8.4-10.2) mg/dL AST 49 (17-59) U/L ALT 39 (4-49) U/L Alkaline Phosphatase 90 (38-126) U/L Total Protein 7.2 (6.3-8.2) g/dL Albumin 4.4 (3.5-5.0) g/dL Current Medications Generic Name Dose Route Start Last Admin Trade Name Freq PRN Reason Stop Dose Admin Aspirin 81 mg 11/06/20 09:00 11/06/20 09:03 Aspirin 81 Mg PO 81 mg DAILY MARLENE Administration Atorvastatin Calcium 10 mg 11/06/20 17:30 Atorvastatin 10 Mg Tab PO W/SUPPER MARLENE Furosemide 40 mg 11/05/20 21:45 11/06/20 09:03 Furosemide 10 Mg/Ml 4 Ml Vial IV 40 mg Q12H MARLENE Administration Glipizide 10 mg 11/06/20 09:00 11/06/20 09:31 Glipizide 5 Mg Tab PO 10 mg BID MARLENE Administration Losartan Potassium 100 mg 11/06/20 09:00 11/06/20 09:03 Losartan 50 Mg Tab PO 100 mg DAILY MARLENE Administration Metformin HCl 1,000 mg 11/06/20 09:00 11/06/20 09:31 Metformin 500 Mg Tab PO 1,000 mg BID MARLENE Administration Metoprolol Tartrate 50 mg 11/06/20 09:00 11/06/20 09:03 Metoprolol Tartrate 50 Mg Tab PO 50 mg BID MARLENE Administration Pantoprazole Sodium 40 mg 11/07/20 07:30 Pantoprazole 40 Mg Tablet PO AC-[id number] MARLENE Rivaroxaban 20 mg 11/06/20 17:30 Rivaroxaban 20 Mg Tab PO W/SUPPER MARLENE Intake and Output 11/05/20 11/06/20 11/06/20 22:59 06:59 14:59 Intake Total 50 250 260 Balance 50 250 260 Intake: Oral 50 250 260 Other: # Voids 1 2 Weight 46 kg 11/05/20 18:14 11/05/20 18:14
[2020-11-06 16:41] LABS: Glucose,Whole Blood 109 mg/dL (75-99)
[2020-11-06] MEDS: RIVAROXABAN 20 MG TAB PO SCH (17:46)
[2020-11-06] MEDS: ATORVASTATIN 10 MG TAB PO SCH (17:46)
[2020-11-06 20:55] LABS: Glucose,Whole Blood 95 mg/dL (75-99)
[2020-11-07] MEDS: PANTOPRAZOLE 40 MG TABLET PO SCH (06:30)
[2020-11-07 06:38] LABS: Glucose,Whole Blood 70 mg/dL (75-99)
[2020-11-07] MEDS: ASPIRIN 81 MG PO SCH (07:59)
[2020-11-07] MEDS: METOPROLOL TARTRATE 50 MG TAB PO SCH ×2 (07:59→20:22)
[2020-11-07] MEDS: metFORMIN 500 MG TAB PO SCH ×2 (08:00→20:22)
[2020-11-07] MEDS: glipiZIDE 5 MG TAB PO SCH ×2 (08:01→20:23)
[2020-11-07] MEDS: LOSARTAN 50 MG TAB PO SCH (08:01)
[2020-11-07] MEDS: FUROSEMIDE 10 MG/ML 4 ML VIAL IV SCH ×2 (08:01→20:23)
[2020-11-07 08:03] LABS: Albumin 3.9 g/dL (3.5-5.0); Calcium 9.5 mg/dL (8.4-10.2); Total Protein 6.6 g/dL (6.3-8.2)
[2020-11-07 08:07] LABS: Basophils % (A) 1 %; Eosinophils # (A) 0.2 k/uL (0-0.7); Eosinophils % (A) 3 %; HCT 40.4 % (39.0-53.0); HGB 13.9 gm/dL (13.0-17.5); Lymphocytes # (A) 0.9 k/uL (1.0-4.8); Lymphocytes % (A) 15 %; MCH 31.6 pg (25.0-35.0); MCHC 34.3 g/dL (31.0-37.0); Mean Platelet Volume 7.3; Monocytes # (A) 0.8 k/uL (0-1.0); Monocytes % (A) 13 %; Neutrophils % (A) 66 %; Platelet Count 194 k/uL (150-450); RBC 4.39 m/uL (4.30-5.90); RDW 13.5 % (11.5-15.5); WBC 6.2 k/uL (3.8-10.6)
[2020-11-07 08:23] LABS: Potassium 3.7 mmol/L (3.5-5.1)
--- NOTE | 2020-11-07 10:16 | P.PN ---
Subjective This is an 80-year-old male, patient of Dr. Garces with a past medical history of atrial fibrillation, coronary artery disease, status post quadruple bypass in 2013 with AICD, diabetes, GERD, hyperlipidemia, hypertension, and melanoma. Patient reports he had developed some shortness of breath that started yesterday. Patient reports yesterday morning he felt short of breath but was able to play a round of golf, when he got home he had worsening dyspnea especially with any exertion. He also started to develop wheezing and cough. He then proceeded to go to the emergency department. Patient had an x-ray that showed mild congestive heart failure with small pleural effusions. He also underwent a CTA that was negative for pulmonary embolism, showed bilateral pleural effusions with bilateral pulmonary infiltrates and atelectasis and atherosclerotic valvular disease. Laboratory values showed WBC 6.9 hemoglobin 14, potassium 4.6, BUN 44, creatinine 1.8, troponin less than 0.012, 0.017, BNP 5450, COVID was negative. Patient has been admitted to the hospital cardiology on consult, he is receiving furosemide 40 mg IV every 12 hours, I&O's. Echocardiogram completed shows left ventricular systolic function is severely impaired with an EF between 25 and 30%, LA severely dilated, mild aortic sclerosis, mild mitral regurgitation, mild tricuspid regurgitation, mild pulmonary hypertension. 11/07: Patient evaluated this morning on rounds. Patient reports he is feeling well, states shortness of breath has improved. He denies any chest pain or palpitations, no nausea, vomiting, or abdominal pain. Cardiology consult appreciated. Plans to interrogate AICD for possible discharge approximately 3 weeks ago. Will continue IV diuresis, monitor I and O's. This morning laboratory values revealed WBC 6.2, hemoglobin 13.9, sodium 139, potassium 3.7, BUN 30, creatinine 1.29. Vitals are stable he is afebrile with a temperature of 98.2, heart rate 85, respiratory rate of 16, blood pressure 134/71, he is 97% on room air. Objective - Vital Signs Vital signs: Vital Signs Temp 98.2 F 11/07/20 08:04 Pulse 85 11/07/20 08:04 Resp 17 11/07/20 08:04 BP 134/71 11/07/20 08:04 Pulse Ox 97 11/07/20 08:04 Intake & Output 11/06/20 11/07/20 11/07/20 18:59 06:59 18:59 Intake Total 820 900 Output Total 2024 Balance 820 -1125 Weight 66.5 kg Intake: Oral 820 900 Output: Urine 2024 Other: # Voids 1 # Bowel Movements 0 0 - Exam - Constitutional General appearance: cooperative, no acute distress - EENT Eyes: EOMI, PERRLA, normal appearance ENT: hearing grossly normal, normal oropharynx - Neck Neck: no lymphadenopathy, normal ROM, no rigidity, no stridor, no thyromegaly - Respiratory Respiratory: bilateral: diminished, clear to auscultation - Cardiovascular Rhythm: regular Heart sounds: normal: S1, S2 Abnormal Heart Sounds: no systolic murmur, no diastolic murmur - Gastrointestinal General gastrointestinal: no distended, no hepatomegaly, normal bowel sounds, no organomegaly, no rigid, soft, no splenomegaly, no tenderness - Neurologic Neurologic: CNII-XII intact - Musculoskeletal Musculoskeletal: no generalized weakness, strength equal bilaterally - Psychiatric Psychiatric: A&O x's 3, appropriate affect, intact judgment & insight - Labs CBC & Chem 7: 11/07/20 07:31 11/07/20 07:31 Labs: Abnormal Lab Results - Last 24 Hours (Table) 11/06/20 11/06/20 11/07/20 Range/Units 11:43 16:39 06:18 Lymphocytes # (1.0-4.8) k/uL POC Glucose (mg/dL) 285 H 109 H 70 L (75-99) mg/dL 11/07/20 Range/Units 07:31 Lymphocytes # 0.9 L (1.0-4.8) k/uL POC Glucose (mg/dL) (75-99) mg/dL Assessment and Plan Plan: 1. Acute on chronic systolic congestive heart failure with an ejection fraction between 25-30%. Echo completed. Cardiology consult added, will continue aspirin 81 mg, furosemide 40 mg every 12 hours, losartan 100 mg daily, Lopressor 50 mg twice a day. Last echo from November 2019 showed ejection fraction of 40-45% 2. Coronary artery disease. Status post quadruple bypass in 2013. Continue current management 3. Ischemic cardiomyopathy with biventricular ICD. Recent device check showed low battery life and lead impedance. Consult with cardiology, will be going for interrogation of his AICD 4. History of proximal atrial fibrillation. Continue metoprolol to 50 mg twice a day and Xartelo 20mg 5. Diabetes mellitus type 2 area continue glipizide 10 mg twice a day along with metformin 1000 mg twice a day. 6. Hyperlipidemia. Lipitor 10 mg daily 7. GERD. Pantoprazole 40 mg daily 8. Stage II chronic kidney disease. Will continue to monitor kidney function closely 9. GI prophylaxis. Pantoprazole 10. DVT prophylaxis. Xarelto 20mg daily The above impression and plan of care have been discussed and directed by signing physician. Ary Yarbrough nurse practitioner acting as scribe for signing physician.
--- NOTE | 2020-11-07 11:24 | P.PN ---
Subjective HISTORY OF PRESENTING ILLNESS This is a pleasant 80-year-old male with a history of ischemic cardiomyopathy, coronary artery disease status post CABG, biventricular AICD, increasing RV thresholds, diabetes mellitus, paroxysmal atrial fibrillation, melanoma. Patient normally follows in the office with Dr. Velázquez. Patient has done fairly well after his bypass and does not get much angina. He does have a biventricular AICD over the RV thresholds have been increasing and therefore angiogram was performed a few months ago which showed innominate stenosis and therefore no adjustments were made. He had been doing fairly well up until 3 weeks ago he states he was walking, going about his day and then started feeling palpitations like his heart was beating real fast and then felt a shock. He has never had AICD discharge previously. 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 He then had done fairly well however will last 2 days has had new worsening shortness breath. He denies any changes in his medications. Denies any fevers, chills, cough. Denies any palpitations. He was given IV diuretics and feels somewhat better today. CTA showed no PE and bilateral pleural effusions and pulmonary vascular congestion. 11/07 REVIEW OF SYSTEMS At the time of my exam: CONSTITUTIONAL: Denies fever or chills. CARDIOVASCULAR: Denies chest pain, +shortness of breath, no orthopnea, PND or palpitations. RESPIRATORY: Denies cough. GASTROINTESTINAL: Denies abdominal pain, diarrhea, constipation, nausea or vomiting. MUSCULOSKELETAL: Denies myalgias. NEUROLOGIC: Denies numbness, tingling or weakness. ENDOCRINE: Denies fatigue, weight change, polydipsia or polyurina. GENITOURINARY: Denies burning, hematuria or urgency with micturation. HEMATOLOGIC: Denies history of anemia or bleeding. PHYSICAL EXAMINATION Vital signs reviewed. CONSTITUTIONAL: No apparent distress. HEENT: Head is normocephalic. Pupils are equal, round. Sclerae anicteric. Mucous membranes of the mouth are moist. No JVD. No carotid bruit. CHEST EXAMINATION: Lungs are clear to auscultation. No chest wall tenderness is noted on palpation or with deep breathing. HEART EXAMINATION: Regular rate and rhythm. S1, S2 heard. No murmurs, gallops or rub. ABDOMEN: Soft, nontender. Positive bowel sounds. EXTREMITIES: 2+ peripheral pulses, no lower extremity edema and no calf tenderness. NEUROLOGIC EXAMINATION: Patient is awake, alert and oriented x3. ASSESSMENT 1. Acute on chronic systolic heart failure 2. Ischemic cardiomyopathy status post biventricular AICD 3. Palpitations and what felt like a shock, likely consistent with AICD discharge 3 weeks ago 4. Chronic kidney disease 5. Coronary artery disease status post CABG, no current angina 6. Paroxysmal atrial fibrillation, currently sinus rhythm 7. Increasing RV thresholds with recent venogram showing innominate stenosis PLAN Repeat echo shows continued CMP with EF 25-30%. Monitor ins and outs. Low sodium diet. Optimize heart failure regimen as able. Interrogate AICD as it appears he likely had an AICD discharge approximately 3 weeks ago. Transition to oral diuretics tomorrow. Likely DC home tomorrow if tolerating oral diuretics Objective - Vital Signs Vital signs: Vital Signs Temp 98.2 F 11/07/20 08:04 Pulse 85 11/07/20 08:04 Resp 17 11/07/20 08:04 BP 134/71 11/07/20 08:04 Pulse Ox 97 11/07/20 08:04 Intake & Output 11/06/20 11/07/20 11/07/20 18:59 06:59 18:59 Intake Total 820 900 240 Output Total 2024 Balance 820 -1125 240 Weight 66.5 kg Intake: Oral 820 900 240 Output: Urine 2024 Other: # Voids 1 # Bowel Movements 0 0 - Labs CBC & Chem 7: 11/07/20 07:31 11/07/20 07:31 Labs: Abnormal Lab Results - Last 24 Hours (Table) 11/06/20 11/06/20 11/07/20 Range/Units 11:43 16:39 06:18 Lymphocytes # (1.0-4.8) k/uL Carbon Dioxide (22-30) mmol/L BUN (9-20) mg/dL Creatinine (0.66-1.25) mg/dL Glucose (74-99) mg/dL POC Glucose (mg/dL) 285 H 109 H 70 L (75-99) mg/dL 11/07/20 11/07/20 Range/Units 07:31 07:31 Lymphocytes # 0.9 L (1.0-4.8) k/uL Carbon Dioxide 31 H (22-30) mmol/L BUN 30 H (9-20) mg/dL Creatinine 1.29 H (0.66-1.25) mg/dL Glucose 72 L (74-99) mg/dL POC Glucose (mg/dL) (75-99) mg/dL
[2020-11-07 11:34] LABS: Glucose,Whole Blood 101 mg/dL (75-99)
[2020-11-07 16:39] LABS: Glucose,Whole Blood 97 mg/dL (75-99)
[2020-11-07] MEDS: RIVAROXABAN 20 MG TAB PO SCH (17:34)
[2020-11-07] MEDS: ATORVASTATIN 10 MG TAB PO SCH (17:34)
[2020-11-07 20:49] LABS: Glucose,Whole Blood 135 mg/dL (75-99)
[2020-11-07 23:41] VITALS: TEMP 98.2
[2020-11-08 06:27] LABS: Glucose,Whole Blood 119 mg/dL (75-99)
[2020-11-08] MEDS: PANTOPRAZOLE 40 MG TABLET PO SCH (06:38)
[2020-11-08 08:19] LABS: HGB 14.5 gm/dL (13.0-17.5); MCHC 33.8 g/dL (31.0-37.0); MCV 91.8 fL (80.0-100.0); Mean Platelet Volume 7.4; Platelet Count 209 k/uL (150-450); RBC 4.68 m/uL (4.30-5.90); RDW 13.5 % (11.5-15.5); WBC 7.2 k/uL (3.8-10.6)
[2020-11-08 08:52] LABS: Albumin 4.3 g/dL (3.5-5.0); Calcium 9.7 mg/dL (8.4-10.2); Magnesium 1.5 mg/dL (1.6-2.3); Potassium 3.6 mmol/L (3.5-5.1); Total Bilirubin 0.9 mg/dL (0.2-1.3); Total Protein 7.3 g/dL (6.3-8.2)
[2020-11-08] MEDS: LOSARTAN 50 MG TAB PO SCH (09:32)
[2020-11-08] MEDS: glipiZIDE 5 MG TAB PO SCH (09:32)
[2020-11-08] MEDS: ASPIRIN 81 MG PO SCH (09:32)
[2020-11-08] MEDS: metFORMIN 500 MG TAB PO SCH (09:33)
[2020-11-08] MEDS: FUROSEMIDE 10 MG/ML 4 ML VIAL IV SCH (09:33)
[2020-11-08] MEDS: METOPROLOL TARTRATE 50 MG TAB PO SCH (09:37)
[2020-11-08 09:54] VITALS: RESP 18
[2020-11-08 10:01] LABS: T4, Free (Free Thyroxine) 1.46 ng/dL (0.78-2.19)
[2020-11-08] MEDS ORDERED: Magnesium Replacement Protocol 1 EACH MISC MISCELLANE PRN (10:29)
--- NOTE | 2020-11-08 11:52 | P.PN ---
Subjective This is a pleasant 80-year-old male with a history of ischemic cardiomyopathy, coronary artery disease status post CABG, biventricular AICD, increasing RV thresholds, diabetes mellitus, paroxysmal atrial fibrillation and melanoma. Patient normally follows in the office with Dr. Mejia. Patient has done fairly well after his bypass and does not get much angina. He does have a biventricular AICD over the RV thresholds have been increasing and therefore angiogram was performed a few months ago which showed innominate stenosis and therefore no adjustments were made. He had been doing fairly well up until 3 weeks ago he states he was walking, going about his day and then started feeling palpitations like his heart was beating real fast and then felt a shock. He has never had AICD discharge previously. 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 He then had done fairly well however will last 2 days has had new worsening shortness breath. He denies any changes in his medications. Denies any fevers, chills, cough. Denies any palpitations. He was given IV diuretics and feels somewhat better today. CTA showed no PE and bilateral pleural effusions and pulmonary vascular congestion. 11/08/2020 Pt is seen and examined resting comfortably, laying flat in bed. He denies chest pain, shortness of breath, dizziness or palpitations. Blood pressure 134/76 heart rate 77 afebrile and maintaining oxygen saturation on room air. Laborat ory data reviewed, CBC unremarkable, sodium 140, potassium 3.6, creatinine 1.41, TSH 4.9 and magnesium 1.5. Telemetry tracings reveal persistent sinus mechanism with no arrhythmia noted. Device interrogation performed here since this admission reviewed. No shock given, however eview of office records indicate that on 09/21 he was having multiple episodes of afib with RVR that were in the VT detection zone and a single 20J shock was delivered. At the time, according to office documentation, he was out of his metoprolol. He was advised to take TID and never miss a dose. 24 hour urine output over 2 L. GENERAL: Well-appearing, well-nourished and in no acute distress. NECK: Supple without JVD or thyromegaly. LUNGS: Breath sounds clear to auscultation bilaterally. Respiration equal and unlabored. No wheezes, rales or rhonchi. HEART: Regular rate and rhythm without murmurs, rubs or gallops. S1 and S2 heard. EXTREMITIES: Normal range of motion, no edema. No clubbing or cyanosis. Peripheral pulses intact. ASSESSMENT Acute on chronic systolic heart failure Ischemic cardiomyopathy status post AICD Paroxysmal atrial fibrillation Chronic kidney disease Coronary artery disease status post bypass grafting Hypomagnesemia PLAN Replace magnesium per protocol. Transition to oral diuretics. Stable for discharge from a cardiac perspective. Follow up with Dr. Mejia in 1-2 weeks. Nurse Practitioner note has been reviewed, I agree with a documented findings and plan of care. Patient was seen and examined. Objective - Vital Signs Vital signs: Vital Signs Temp 98.2 F 11/08/20 04:00 Pulse 77 11/08/20 08:20 Resp 18 11/08/20 08:20 BP 134/76 11/08/20 08:20 Pulse Ox 95 11/08/20 08:20 Intake & Output 11/07/20 11/08/20 11/08/20 18:59 06:59 18:59 Intake Total 780 1200 Output Total 2000 Balance 780 -800 Intake: Oral 780 1200 Output: Urine 2000 Other: # Voids 2 # Bowel Movements 0 - Labs CBC & Chem 7: 11/08/20 07:36 11/08/20 07:36 Labs: Abnormal Lab Results - Last 24 Hours (Table) 11/07/20 11/07/20 11/08/20 Range/Units 11:32 20:39 06:15 Chloride (98-107) mmol/L Carbon Dioxide (22-30) mmol/L BUN (9-20) mg/dL Creatinine (0.66-1.25) mg/dL Glucose (74-99) mg/dL POC Glucose (mg/dL) 101 H 135 H 119 H (75-99) mg/dL Magnesium (1.6-2.3) mg/dL TSH (0.465-4.680) mIU/L 11/08/20 Range/Units 07:36 Chloride 97 L (98-107) mmol/L Carbon Dioxide 32 H (22-30) mmol/L BUN 37 H (9-20) mg/dL Creatinine 1.41 H (0.66-1.25) mg/dL Glucose 113 H (74-99) mg/dL POC Glucose (mg/dL) (75-99) mg/dL Magnesium 1.5 L (1.6-2.3) mg/dL TSH 4.970 H (0.465-4.680) mIU/L
[2020-11-08 12:03] LABS: Glucose,Whole Blood 140 mg/dL (75-99)
[2020-11-08] MEDS: MAGNESIUM SULFATE-D5W PMX 1 GM in DEXTROSE/WATER 1 100ML.BAG IVPB SCH ×2 (12:03→13:17)
[2020-11-08 12:40] VITALS: BP 126/75; PULSE 74
[2020-11-08] MEDS ORDERED: POTASSIUM CHLORIDE ER 20 MEQ TAB.ER PO SCH (21:00)
--- NOTE | 2020-11-09 08:04 | P.DS ---
Providers Date of admission: 11/05/20 21:31 Expected date of discharge: 11/08/20 Attending physician: Merlyn Stevens Consults: 11/05/20 21:31 Consult Physician Routine Consulting Provider: Bladimir Gerardo Consult Reason/Comments: CHF, history of pacemaker Do you want consulting provider notified?: Yes Primary care physician: [facility] Course: This is an 80-year-old male, patient of Dr. Colon'arian with a past medical history of atrial fibrillation, coronary artery disease, status post quadruple bypass in 2013 with AICD, diabetes, GERD, hyperlipidemia, hypertension, and melanoma. Patient reports he had developed some shortness of breath that started yesterday. Patient reports yesterday morning he felt short of breath but was able to play a round of golf, when he got home he had worsening dyspnea especially with any exertion. He also started to develop wheezing and cough. He then proceeded to go to the emergency department. Patient had an x-ray that showed mild congestive heart failure with small pleural effusions. He also underwent a CTA that was negative for pulmonary embolism, showed bilateral pleural effusions with bilateral pulmonary infiltrates and atelectasis and atherosclerotic valvular disease. Laboratory values showed WBC 6.9 hemoglobin 14, potassium 4.6, BUN 44, creatinine 1.8, troponin less than 0.012, 0.017, BNP 5450, COVID was negative. Patient has been admitted to the hospital cardiology on consult, he is receiving furosemide 40 mg IV every 12 hours, I&O's. Echocardiogram completed shows left ventricular systolic function is severely impaired with an EF between 25 and 30%, LA severely dilated, mild aortic sclerosis, mild mitral regurgitation, mild tricuspid regurgitation, mild pulmonary hypertension. 11/07: Patient evaluated this morning on rounds. Patient reports he is feeling well, states shortness of breath has improved. He denies any chest pain or palpitations, no nausea, vomiting, or abdominal pain. Cardiology consult appreciated. Plans to interrogate AICD for possible discharge approximately 3 weeks ago. Will continue IV diuresis, monitor I and O's. This morning laboratory values revealed WBC 6.2, hemoglobin 13.9, sodium 139, potassium 3.7, BUN 30, creatinine 1.29. Vitals are stable he is afebrile with a temperature of 98.2, heart rate 85, respiratory rate of 16, blood pressure 134/71, he is 97% on room air. 11/08: A Chin is denying any new complaints today. No chest pain or shortness of breath. He has been ambulating in his room without dizziness or lightheadedness. Potassium was 3.6 and magnesium 1.5 and will be replaced. Patient is on IV Lasix which will be transitioned to oral with plan to continue oral at home as well as potassium supplementation. Patient has had his AICD interrogated and he has been followed closely by cardiology. Patient was found on interrogation have no shot given however office records indicated on September 21 he had multiple episodes of A. fib with RVR that were in the VT detection zone and a single 20 J shock was delivered. Also according to the office records, patient was out of his metoprolol. CBC was unremarkable. Blood sugars have been running 113-140. TSH 4.970 and free T4 normal at 1.46. Patient will be discharged home today in stable condition. DISCHARGE DIAGNOSES 1. Acute on chronic systolic heart failure with an ejection fraction between 25-30%. 2. Coronary artery disease. Status post quadruple bypass in 2013. 3. Ischemic cardiomyopathy with biventricular ICD. 4. Paroxysmal atrial fibrillation. 5. Diabetes mellitus type 2. 6. Hyperlipidemia. 7. GERD. 8. Stage II chronic kidney disease. DISCHARGE PLAN Home Impression and plan of care have been directed as dictated by the signing physician. Maranda Wright nurse practitioner acting as scribe for signing physician. Patient Condition at Discharge: Good Plan - Discharge Summary Discharge Rx Participant: No New Discharge Prescriptions: New Potassium Chloride ER [K-Dur 20] 20 meq PO DAILY #30 tab.er.prt Furosemide [Lasix] 40 mg PO DAILY #30 tablet Continue Lovastatin [Mevacor] 40 mg PO W/SUPPER Rivaroxaban [Xarelto] 20 mg PO W/SUPPER Metoprolol Tartrate [Lopressor] 50 mg PO BID Losartan Potassium [Cozaar] 100 mg PO DAILY Aspirin [Adult Low Dose Aspirin EC] 81 mg PO DAILY glipiZIDE/METFORMIN HCL [glipiZIDE/METFORMIN HCL 5-500 mg] 2 tab PO BID Discharge Medication List Lovastatin [Mevacor] 40 mg PO W/SUPPER 10/28/13 [History] Rivaroxaban [Xarelto] 20 mg PO W/SUPPER 04/08/17 [History] Aspirin [Adult Low Dose Aspirin EC] 81 mg PO DAILY 04/10/18 [History] Losartan Potassium [Cozaar] 100 mg PO DAILY 04/10/18 [History] Metoprolol Tartrate [Lopressor] 50 mg PO BID 04/10/18 [History] glipiZIDE/METFORMIN HCL [glipiZIDE/METFORMIN HCL 5-500 mg] 2 tab PO BID 11/05/20 [History] Furosemide [Lasix] 40 mg PO DAILY #30 tablet 11/08/20 [Rx] Potassium Chloride ER [K-Dur 20] 20 meq PO DAILY #30 tab.er.prt 11/08/20 [Rx] Follow up Appointment(s)/Referral(s): Christina Mejia MD [STAFF PHYSICIAN] - 2 Weeks (office will call with date and time of follow up appointment) Oswaldo Colon MD [Primary Care Provider] - 11/15/20 11:15 am Patient Instructions/Handouts: Heart Failure (DC) Discharge Disposition: HOME SELF-CARE
== END 2020-11-08 14:30 | disposition home or self-care (01) | DRG 291 ==
LOC: EC 16:59 → 3SCARD 21:31
PROVIDERS: ADMIT Family Medicine; ATTEND Family Medicine
DX: I13.0 Hypertensive heart and chronic kidney disease with heart failure and stage 1 through stage 4 chronic kidney disease, or unspecified chronic kidney disease (principal); I50.23 Acute on chronic systolic (congestive) heart failure; J98.11 Atelectasis; E11.22 Type 2 diabetes mellitus with diabetic chronic kidney disease; E78.5 Hyperlipidemia, unspecified; E83.42 Hypomagnesemia; I25.10 Atherosclerotic heart disease of native coronary artery without angina pectoris; I25.5 Ischemic cardiomyopathy; I27.20 Pulmonary hypertension, unspecified; I48.0 Paroxysmal atrial fibrillation; I70.0 Atherosclerosis of aorta; J98.01 Acute bronchospasm; K21.9 Gastro-esophageal reflux disease without esophagitis; N18.2 Chronic kidney disease, stage 2 (mild); R09.02 Hypoxemia; Z20.822 Contact with and (suspected) exposure to COVID-19; I08.3 Combined rheumatic disorders of mitral, aortic and tricuspid valves; Z79.01 Long term (current) use of anticoagulants; Z79.82 Long term (current) use of aspirin; Z79.84 Long term (current) use of oral hypoglycemic drugs; Z79.899 Other long term (current) drug therapy; Z80.1 Family history of malignant neoplasm of trachea, bronchus and lung; Z82.49 Family history of ischemic heart disease and other diseases of the circulatory system; Z83.3 Family history of diabetes mellitus; Z85.820 Personal history of malignant melanoma of skin; Z87.442 Personal history of urinary calculi; Z95.810 Presence of automatic (implantable) cardiac defibrillator; Z95.1 Presence of aortocoronary bypass graft; Z96.642 Presence of left artificial hip joint; Z98.42 Cataract extraction status, left eye; Z98.41 Cataract extraction status, right eye; Z87.891 Personal history of nicotine dependence
CPT/HCPCS: 36415; 71046; 71275; 80053; 82550; 83605; 83735; 83880; 84439; 84443; 84484; 85025; 85027; 85379; 85610; 85730; 87635; 93005; 93306; 94640; 96374; 99291

== ENCOUNTER → 2021-03-31 | Outpatient (CLI) | payer MEDICARE, BC ==
[2021-03-31 12:42] LABS: HCT 34.5 % (39.0-53.0); HGB 11.7 gm/dL (13.0-17.5); MCH 31.6 pg (25.0-35.0); MCV 92.8 fL (80.0-100.0); Mean Platelet Volume 7.9; Platelet Count 203 k/uL (150-450); RBC 3.71 m/uL (4.30-5.90); RDW 13.2 % (11.5-15.5); WBC 5.7 k/uL (3.8-10.6)
[2021-03-31 13:05] LABS: Potassium 4.6 mmol/L (3.5-5.1)
== END | disposition home or self-care (01) ==
LOC: LABPAT 10:34
PROVIDERS: ATTEND Internal Medicine Clinical Cardiac Electrophysiology
DX: Z01.812 Encounter for preprocedural laboratory examination (principal); T82.111A Breakdown (mechanical) of cardiac pulse generator (battery), initial encounter; Y71.2 Prosthetic and other implants, materials and accessory cardiovascular devices associated with adverse incidents
CPT/HCPCS: 80051; 82565; 84520; 85027

== ENCOUNTER 2021-04-11 08:10 | Day surgery (SDC) | payer MEDICARE, BC ==
[2021-04-08 10:33] VITALS: BMI 20.8
[~2021-04-11 08:10] MED LIST changes: +ceFAZolin 1 GM in SODIUM CHLORIDE 0.9% 250 ML IRRIGATION PRN
[2021-04-11] MEDS ORDERED: SODIUM CHLORIDE 0.9% 500 ML 500 ML IV ONE (08:28)
[2021-04-11 08:49] VITALS: TEMP 98.2
[2021-04-11 08:54] LABS: Glucose,Whole Blood 179 mg/dL (75-99)
[2021-04-11 08:57] LABS: Basophils % (A) 1 %; Eosinophils # (A) 0.3 k/uL (0-0.7); Eosinophils % (A) 5 %; HCT 33.8 % (39.0-53.0); HGB 11.3 gm/dL (13.0-17.5); Lymphocytes # (A) 0.9 k/uL (1.0-4.8); Lymphocytes % (A) 18 %; MCH 31.5 pg (25.0-35.0); MCHC 33.4 g/dL (31.0-37.0); MCV 94.1 fL (80.0-100.0); Mean Platelet Volume 8.4; Monocytes # (A) 0.6 k/uL (0-1.0); Monocytes % (A) 11 %; Neutrophils # (A) 3.3 k/uL (1.3-7.7); Neutrophils % (A) 63 %; Platelet Count 204 k/uL (150-450); RDW 12.9 % (11.5-15.5); WBC 5.2 k/uL (3.8-10.6)
[2021-04-11 09:24] LABS: Calcium 9.6 mg/dL (8.4-10.2)
[2021-04-11] MEDS ORDERED: fentaNYL (PF) 50 MCG/ML 2 ML AMP ONE (10:08)
[2021-04-11] MEDS ORDERED: MIDAZOLAM 2 MG/2 ML VIAL ONE (10:08)
[2021-04-11] MEDS ORDERED: PROPOFOL 10 MG/ML 20 ML VIAL IV ONE (10:08)
[2021-04-11] MEDS ORDERED: LIDOCAINE 1% INJ 10MG/ML (20 ML MDV) ONE (10:34)
[2021-04-11] MEDS ORDERED: LIDOCAINE 1% INJ 10MG/ML (20 ML MDV) SQ ONE (11:01)
[2021-04-11] MEDS ORDERED: ACETAMINOPHEN TAB 325 MG TAB PO PRN (11:47)
[2021-04-11] MEDS ORDERED: ACETAMINOPHEN IV (For NPO) 1,000 MG in EMPTY BAG 1 BAG IVPB ONE (12:30)
--- NOTE | 2021-04-11 13:38 | CE ---
CARDIAC ELECTROPHYSIOLOGY REPORT This is an 80-year-old male patient who has a biventricular ICD which is at [facility]. He has underlying ischemic cardiomyopathy, left bundle branch block pattern, congestive heart failure, class 2-3. On guideline-directed medical treatment. [place] QRS width of left bundle branch block is 166 millisecond. His device is at [facility] and he is brought in for device generator change and testing. Cinefluoroscopy of the leads was performed with the atrial and dual coil ICD lead was in stable position. No fractures or breaks. The left pectoral area was prepped and draped as per protocol. 1% lidocaine was used for local anesthesia. A 4 cm incision was made over the generator and carried down to the level of the generator. The generator was explanted. Partial capsulectomy was performed. The old generator was explanted. The new generator was implanted. The leads were tested and found to be functioning normally. The explanted generator was a [employer] CD 3231-40, serial #[id number] that has been implanted July 11, 2012. The new generator implanted was a [employer] model number [id number], serial #[id number]. The chronic right atrial lead was a model #1688TC, 52 cm in length and serial number [id number] that had been originally implanted in April of 2007. P-waves 1.2 mV. Pacing impedance 790 ohms. Pacing threshold 1.5 V at 0.5 milliseconds. The ICD lead was a [employer] model #7021, 65 cm in length and serial #[id number] that was originally implanted in April of 2007. R-waves 5.7 mV. Pacing impedance 540 ohms, pacing threshold 0.9 V at 0.5 milliseconds, high-voltage impedance 40 ohms. The LV lead was a model #1056T, 75 cm in length and serial number [id number] also implanted in 2006 and this was found to be in stable good position on fluoroscopy without any fractures or breaks. Pacing impedance 700 ohms, pacing threshold 1 V at 0.5 milliseconds. After the lead was implanted defibrillation level testing was performed. A DC fibber shock was used to induce ventricular fibrillation. This was adequately and appropriately detected at least sensitivity. A 10 joule shock, configuration with a charge time 1.6 seconds was not successful in defibrillated the patient. However it did organize the rhythm and a 20 joule shock, then successfully defibrillated the patient in sinus rhythm. Shocking impedance 43 ohms. Total charge time 3.6 seconds, The wound was closed in 3 layers and dressed per protocol. RESULTS: 1. Successful biventricular ICD generator change. 2. DFT at or below 20 joules. The 10 joules in the configuration with the SVC coil turned on, failed. A 20 joule successful. Shock was successful. 3. Fluoroscopy was within normal limits. The device was then appropriately programmed according to the RIT programming. MMODL / IJN: [id number] /
[2021-04-11 13:46] VITALS: RESP 16
[2021-04-11 15:22] VITALS: BP 158/72; PULSE 60
== END 2021-04-11 15:20 | disposition home or self-care (01) ==
LOC: CATHEP 08:10
PROVIDERS: ATTEND Internal Medicine Clinical Cardiac Electrophysiology
DX: I25.5 Ischemic cardiomyopathy (principal); I44.7 Left bundle-branch block, unspecified; Z20.822 Contact with and (suspected) exposure to COVID-19; I10 Essential (primary) hypertension; E78.5 Hyperlipidemia, unspecified; E11.9 Type 2 diabetes mellitus without complications; I48.91 Unspecified atrial fibrillation; Z95.810 Presence of automatic (implantable) cardiac defibrillator; Z79.01 Long term (current) use of anticoagulants; Z79.84 Long term (current) use of oral hypoglycemic drugs
CPT/HCPCS: 93641; 33264; 80048; 85025; 87635; C1882; J2250; J0690; J2001; J3010; J0131; J2704

== ENCOUNTER → 2021-11-24 | Outpatient (CLI) | payer MEDICARE, BC | END | disposition home or self-care (01) | LOC: RADCTMAIN 07:18 | PROVIDERS: ATTEND Internal Medicine Interventional Cardiology | DX: R09.89 Other specified symptoms and signs involving the circulatory and respiratory systems (principal) | CPT/HCPCS: 82565; 84520 ==

== ENCOUNTER → 2022-01-10 | Outpatient (CLI) | payer MEDICARE, BC ==
--- NOTE | 2022-01-11 08:25 | US ---
EXAMINATION TYPE: US kidneys/renal and bladder DATE OF EXAM: 01/10/2022 COMPARISON: NONE CLINICAL HISTORY: N18.9 CKD. CKD EXAM MEASUREMENTS: Right Kidney: 12.9 x 6.3 x 5.5 cm Left Kidney: 13.3 x 7.0 x 5.5 cm Right Kidney: multiple cystic areas noted, largest = 6.2 x 5.3 x 6.0cm Left Kidney: multiple cystic areas noted, largest = 5.2 x 3.8 x 6.3cm Bladder: appears wnl Bilateral Jets seen: yes heterogeneous prostate, enlarged = 5.8cm There is no evidence for hydronephrosis at this point in time. No nephrolithiasis is seen. No solid masses are identified. The urinary bladder is anechoic. Bilateral ureteral jets are seen. IMPRESSION: Multiple simple appearing renal cysts. Enlarged prostate gland.
== END | disposition home or self-care (01) ==
LOC: RADUSWWP 15:39
PROVIDERS: ATTEND Internal Medicine Geriatric Medicine
DX: N18.9 Chronic kidney disease, unspecified (principal); N40.0 Benign prostatic hyperplasia without lower urinary tract symptoms; N28.1 Cyst of kidney, acquired
CPT/HCPCS: 76770

== ENCOUNTER → 2022-01-16 | Outpatient (CLI) | payer MEDICARE, BC ==
[2022-01-16 14:33] LABS: Appearance,Urine Clear (Clear); Bilirubin,Urine Negative (Negative); Blood,Urine Trace (Negative); Color,Urine Yellow (Yellow); Ketones,Urine Negative (Negative); Nitrite,Urine Negative (Negative); PH, Urine 5.5 (5.0-8.0); Specific Gravity,Urine 1.011 (1.001-1.030); Urobilinogen,Urine 0.2 (0.2,1.0)
[2022-01-16 14:34] LABS: Basophils # (A) 0.03 X 10*3/uL (0.00-0.10); Basophils % (A) 0.5 %; Eosinophils # (A) 0.09 X 10*3/uL (0.04-0.35); Eosinophils % (A) 1.6 %; HCT 35.2 % (39.6-50.0); HGB 11.1 g/dL (13.0-17.0); Immature Grans, Automated 0.2 %; Lymphocytes # (A) 0.88 X 10*3/uL (0.90-5.00); Lymphocytes % (A) 15.4 %; MCH 30.2 pg (27.0-32.0); MCHC 31.5 g/dL (32.0-37.0); MCV 95.7 fL (80.0-97.0); Mean Platelet Volume 10.3 fL (9.5-12.2); Monocytes # (A) 0.67 X 10*3/uL (0.20-1.00); Monocytes % (A) 11.7 %; NRBC Per 100 WBC 0 /100 WBCS (0.0-0.0); Neutrophils # (A) 4.04 X 10*3/uL (1.80-7.70); Neutrophils % (A) 70.6 %; Platelet Count 192 X 10*3/uL (140-440); RBC 3.68 X 10*6/uL (4.40-5.60); RDW 15.6 % (11.5-14.5); WBC 5.72 X 10*3/uL (4.50-10.00)
[2022-01-16 14:39] LABS: Bacteria,Urine 1+ /HPF (None Seen)
[2022-01-16 15:17] LABS: African American GFR (CKD) 30.9 (60.0-200.0); Albumin 4.2 g/dL (3.8-4.9); Albumin/Globulin Ratio 1.48 (1.60-3.17); Anion Gap 12.8 mmol/L (10.00-18.00); BUN/Creat Ratio 13.45 Ratio (12.00-20.00); Calcium 9.5 mg/dL (8.7-10.3); Carbon Dioxide 23.5 mmol/L (20.0-27.5); Globulin 2.8 g/dL (1.6-3.3); Non-African American GFR(CKD) 26.7 (60.0-200.0); Potassium 4.4 mmol/L (3.5-5.5); Total Bilirubin 0.3 mg/dL (0.30-1.20)
== END | disposition home or self-care (01) ==
LOC: LABWHC1 09:15
PROVIDERS: ATTEND Internal Medicine Geriatric Medicine
DX: N18.9 Chronic kidney disease, unspecified (principal)
CPT/HCPCS: 36415; 80053; 81001; 84100; 85025

== ENCOUNTER → 2022-03-22 | Outpatient (CLI) | payer MEDICARE, BC ==
[2022-03-22 18:08] LABS: African American GFR (CKD) 31.1 (60.0-200.0); Anion Gap 13.6 mmol/L (10.00-18.00); BUN/Creat Ratio 13.38 Ratio (12.00-20.00); Blood Urea Nitrogen 29.7 mg/dL (9.0-27.0); Calcium 9.5 mg/dL (8.7-10.3); Carbon Dioxide 22.6 mmol/L (20.0-27.5); Non-African American GFR(CKD) 26.8 (60.0-200.0); Potassium 4.7 mmol/L (3.5-5.5)
== END | disposition home or self-care (01) ==
LOC: LABWHC1 10:06
PROVIDERS: ATTEND Nurse Practitioner Family
DX: N18.4 Chronic kidney disease, stage 4 (severe) (principal)
CPT/HCPCS: 36415; 80048

== ENCOUNTER → 2022-05-24 | Outpatient (CLI) | payer MEDICARE, BC ==
[2022-05-24 13:52] LABS: Appearance,Urine Turbid (Clear); Bacteria,Urine Occasional /hpf; Bilirubin,Urine Negative (Negative); Blood,Urine Small (Negative); Color,Urine Light Yellow; Glucose,Urine (UA) Negative (Negative); Ketones,Urine Negative (Negative); Leukocyte Esterase,Urine Large (Negative); Nitrite,Urine Negative (Negative); Protein,Urine 2+ (Negative); RBC,Urine 9 /hpf (0-5); Specific Gravity,Urine 1.015 (1.001-1.035); Urobilinogen,Urine <2.0 mg/dL (<2.0); WBC,Urine >182 /hpf (0-5)
[2022-05-24 14:41] LABS: Basophils # (A) 0.05 X 10*3/uL (0.00-0.10); Basophils % (A) 0.8 %; Eosinophils # (A) 0.18 X 10*3/uL (0.04-0.35); Eosinophils % (A) 2.8 %; HCT 31.5 % (39.6-50.0); HGB 10.2 g/dL (13.0-17.0); Immature Grans, Automated 0.3 %; Lymphocytes # (A) 0.94 X 10*3/uL (0.90-5.00); Lymphocytes % (A) 14.8 %; MCH 31.2 pg (27.0-32.0); MCHC 32.4 g/dL (32.0-37.0); MCV 96.3 fL (80.0-97.0); Mean Platelet Volume 10.4 fL (9.5-12.2); Monocytes # (A) 0.81 X 10*3/uL (0.20-1.00); Monocytes % (A) 12.8 %; NRBC Per 100 WBC 0 /100 WBCS (0.0-0.0); Neutrophils # (A) 4.34 X 10*3/uL (1.80-7.70); Neutrophils % (A) 68.5 %; Platelet Count 183 X 10*3/uL (140-440); RBC 3.27 X 10*6/uL (4.40-5.60); RDW 13.2 % (11.5-14.5); WBC 6.34 X 10*3/uL (4.50-10.00)
[2022-05-24 20:35] LABS: % Iron Saturation 12.43 (15.00-50.00); Anion Gap 13.3 mmol/L (10.00-18.00); BUN/Creat Ratio 13.16 Ratio (12.00-20.00); Blood Urea Nitrogen 33.7 mg/dL (9.0-27.0); Calcium 9.2 mg/dL (8.7-10.3); Carbon Dioxide 21.5 mmol/L (20.0-27.5); Magnesium 2.1 mg/dL (1.5-2.4); Non-African American GFR(CKD) 22.4 (60.0-200.0); Phosphorus 3.6 mg/dL (2.4-5.1); Potassium 4.4 mmol/L (3.5-5.5)
[2022-05-24 21:00] LABS: Ferritin 66.1 ng/mL (22.0-322.0)
== END | disposition home or self-care (01) ==
LOC: LABWHC1 09:42
PROVIDERS: ATTEND Internal Medicine Nephrology
DX: N25.81 Secondary hyperparathyroidism of renal origin (principal); N18.4 Chronic kidney disease, stage 4 (severe); N39.0 Urinary tract infection, site not specified; E55.9 Vitamin D deficiency, unspecified; D63.1 Anemia in chronic kidney disease; R80.9 Proteinuria, unspecified
CPT/HCPCS: 36415; 80048; 81001; 82043; 82306; 82570; 82728; 83540; 83550; 83735; 83970; 84100; 85025

== ENCOUNTER → 2022-06-12 | Outpatient (CLI) | payer MEDICARE, BC ==
--- NOTE | 2022-06-12 14:24 | US ---
EXAMINATION TYPE: US kidneys/renal and bladder DATE OF EXAM: 06/12/2022 COMPARISON: US January 10, 2022 CLINICAL HISTORY: N18.4 CKD STAGE 4. CKD stage 4 EXAM MEASUREMENTS: Right Kidney: 12.8 x 6.8 x 5.0 cm Left Kidney: 13.9 x 5.8 x 4.8 cm Right Kidney: No evidence of hydro, multicystic with largest cyst upper pole= 5.2 x 5.4 x 5.6 cm, sim ilar findings when compared to prior Left Kidney: No evidence of hydro, multicystic with largest cyst lower pole= 6.3 x 4.8 x 6.1 cm, bart lar findings when compared to prior Bladder: Irregular posterior wall, otherwise appeared wnl Bilateral Jets seen: Yes Several thin-walled cysts of varying size and shape are redemonstrated scattered throughout the bilat eral kidneys. No hydronephrosis is evident bilaterally. Increased cortical echogenicity is seen. Blad amelia shows adequate distention with visualized bilateral distal ureter jets. IMPRESSION: No hydronephrosis seen bilaterally. No significant change from prior ultrasound.
== END | disposition home or self-care (01) ==
LOC: RADUSWWP 11:49
PROVIDERS: ATTEND Internal Medicine Nephrology
DX: N18.4 Chronic kidney disease, stage 4 (severe) (principal)
CPT/HCPCS: 76770

== ENCOUNTER → 2022-11-18 | Outpatient (CLI) | payer MEDICARE, BC ==
[2022-11-18 23:41] LABS: Basophils # (A) 0.04 X 10*3/uL (0.00-0.10); Basophils % (A) 0.8 %; Eosinophils # (A) 0.09 X 10*3/uL (0.04-0.35); Eosinophils % (A) 1.9 %; HCT 35.2 % (39.6-50.0); HGB 11.2 g/dL (13.0-17.0); Immature Grans, Automated 0.6 %; Lymphocytes # (A) 0.79 X 10*3/uL (0.90-5.00); Lymphocytes % (A) 16.3 %; MCH 31.2 pg (27.0-32.0); MCHC 31.8 g/dL (32.0-37.0); MCV 98.1 fL (80.0-97.0); Mean Platelet Volume 10.5 fL (9.5-12.2); Monocytes % (A) 10.3 %; NRBC Per 100 WBC 0 /100 WBCS (0.0-0.0); Neutrophils # (A) 3.39 X 10*3/uL (1.80-7.70); Neutrophils % (A) 70.1 %; Platelet Count 159 X 10*3/uL (140-440); RBC 3.59 X 10*6/uL (4.40-5.60); RDW 13.2 % (11.5-14.5); WBC 4.84 X 10*3/uL (4.50-10.00)
[2022-11-19 00:02] LABS: % Iron Saturation 18.52 (15.00-50.00); ALT 18 U/L (10-49); AST 25 U/L (14-35); African American GFR (CKD) 34.4 (60.0-200.0); Albumin 4.2 g/dL (3.8-4.9); Albumin/Globulin Ratio 1.88 (1.60-3.17); Alkaline Phosphatase 94 U/L (41-126); BUN/Creat Ratio 14.24 Ratio (12.00-20.00); Blood Urea Nitrogen 28.9 mg/dL (9.0-27.0); Calcium 9.5 mg/dL (8.7-10.3); Carbon Dioxide 20.6 mmol/L (20.0-27.5); Chloride 107 mmol/L (96-109); Globulin 2.2 g/dL (1.6-3.3); Glucose 158 mg/dL (70-110); Iron 76 ug/dL (65-175); Non-African American GFR(CKD) 29.7 (60.0-200.0); Phosphorus 3.6 mg/dL (2.4-5.1); Potassium 4.8 mmol/L (3.5-5.5); Sodium 141 mmol/L (135-145); Total Iron Binding Capacity 409 ug/dL (228-460); Total Protein 6.4 g/dL (6.2-8.2); Uric Acid 5.7 mg/dL (3.7-8.7)
[2022-11-19 00:19] LABS: Chol/HDL Ratio 1.78 Ratio; LDL Cholesterol,Calculated 38.5 mg/dL (0.0-131.0)
[2022-11-19 08:24] LABS: Urine Creatinine 55.6 mg/dL (39.0-259.0)
[2022-11-21 10:58] LABS: Free Lambda Lt Chain Qnt, Seru 3.54 mg/dL (0.57-2.63)
== END | disposition home or self-care (01) ==
LOC: LABWHC1 10:38
PROVIDERS: ATTEND Nurse Practitioner Family
DX: I48.0 Paroxysmal atrial fibrillation (principal); I25.10 Atherosclerotic heart disease of native coronary artery without angina pectoris; E11.65 Type 2 diabetes mellitus with hyperglycemia; E11.22 Type 2 diabetes mellitus with diabetic chronic kidney disease; N18.32 Chronic kidney disease, stage 3b; R80.9 Proteinuria, unspecified
CPT/HCPCS: 36415; 80053; 80061; 82043; 82306; 82570; 83036; 83516; 83540; 83550; 83735; 83883; 83970; 84100; 84443; 84550; 85025; 86038; 86160; 86162; 86225; 86255; 86334

== ENCOUNTER → 2022-12-12 | Outpatient (CLI) | payer MEDICARE, BC ==
[2022-12-13 05:21] LABS: BUN/Creat Ratio 14.52 Ratio (12.00-20.00); Blood Urea Nitrogen 39.2 mg/dL (9.0-27.0); Calcium 9.2 mg/dL (8.7-10.3); Carbon Dioxide 22.4 mmol/L (21.6-31.8); Chloride 104 mmol/L (96-109); Glucose 272 mg/dL (70-110); Potassium 4.4 mmol/L (3.5-5.5); Sodium 138 mmol/L (135-145)
== END | disposition home or self-care (01) ==
LOC: LABWHC1 09:25
PROVIDERS: ATTEND Nurse Practitioner Family
DX: N18.4 Chronic kidney disease, stage 4 (severe) (principal)
CPT/HCPCS: 36415; 80048

== ENCOUNTER → 2022-12-27 | Outpatient (CLI) | payer MEDICARE, BC ==
[2022-12-27 16:04] LABS: BUN/Creat Ratio 14.46 Ratio (12.00-20.00); Blood Urea Nitrogen 34.7 mg/dL (9.0-27.0); Calcium 9.6 mg/dL (8.7-10.3); Carbon Dioxide 21.1 mmol/L (21.6-31.8); Chloride 109 mmol/L (96-109); Glucose 112 mg/dL (70-110); Potassium 4.3 mmol/L (3.5-5.5); Sodium 145 mmol/L (135-145)
== END | disposition home or self-care (01) ==
LOC: LABWHC1 09:04
PROVIDERS: ATTEND Internal Medicine Nephrology
DX: N18.4 Chronic kidney disease, stage 4 (severe) (principal)
CPT/HCPCS: 36415; 80048

== ENCOUNTER → 2023-02-22 | Outpatient (CLI) | payer MEDICARE, BC ==
[2023-02-22 16:48] LABS: Basophils # (A) 0.04 X 10*3/uL (0.00-0.10); Basophils % (A) 0.6 %; Eosinophils # (A) 0.11 X 10*3/uL (0.04-0.35); Eosinophils % (A) 1.5 %; HCT 37.6 % (39.6-50.0); HGB 12.4 d/dL (13.0-17.0); Lymphocytes # (A) 0.79 X 10*3/uL (0.90-5.00); Lymphocytes % (A) 11.1 %; MCV 97.2 FL (80.0-97.0); Mean Platelet Volume 10.4 FL (9.5-12.2); Monocytes % (A) 9.9 %; NRBC Per 100 WBC 0 X 10*3/uL (0.00-0.01); Neutrophils # (A) 5.44 X 10*3/uL (1.80-7.70); Neutrophils % (A) 76.6 %; Platelet Count 169 X 10*3/uL (140-440); RBC 3.87 X 10*6/uL (4.40-5.60); RDW 13.9 % (11.5-14.5)
[2023-02-22 16:49] LABS: % Iron Saturation 41.56 (15.00-50.00); Albumin 4.3 d/dL (3.8-4.9); BUN/Creat Ratio 14.82 Ratio (12.00-20.00); Blood Urea Nitrogen 32.6 mg/dL (9.0-27.0); Calcium 9.4 mg/dL (8.7-10.3); Carbon Dioxide 23.8 mmol/L (21.6-31.8); Chloride 104 mmol/L (96-109); Ferritin 43.1 ng/mL (22.0-322.0); Glucose 245 mg/dL (70-110); Iron 170 UG/DL (65-175); Magnesium 2.2 mg/dL (1.5-2.4); Phosphorus 3.3 mg/dL (2.4-5.1); Potassium 4.7 mmol/L (3.5-5.5); Sodium 138 mmol/L (135-145); Total Iron Binding Capacity 409 UG/DL (228-460); Uric Acid 6.6 mg/dL (3.7-8.7)
[2023-02-22 20:26] LABS: Urine Creatinine 54.9 mg/dL (39.0-259.0)
== END | disposition home or self-care (01) ==
LOC: LABWHC1 10:01
PROVIDERS: ATTEND Internal Medicine Nephrology
DX: N25.81 Secondary hyperparathyroidism of renal origin (principal); N18.4 Chronic kidney disease, stage 4 (severe); E61.1 Iron deficiency; E55.9 Vitamin D deficiency, unspecified; M10.9 Gout, unspecified; R80.9 Proteinuria, unspecified
CPT/HCPCS: 36415; 80048; 82040; 82043; 82306; 82570; 82728; 83540; 83550; 83735; 83970; 84100; 84550; 85025

== ENCOUNTER → 2023-08-30 | Outpatient (CLI) | payer MEDICARE, BC ==
[2023-08-30 16:10] LABS: % Iron Saturation 35.96 (15.00-50.00); BUN/Creat Ratio 13.83 Ratio (12.00-20.00); Blood Urea Nitrogen 33.2 mg/dL (9.0-27.0); Calcium 9.3 mg/dL (8.7-10.3); Carbon Dioxide 22.2 mmol/L (21.6-31.8); Chloride 105 mmol/L (96-109); Glucose 163 mg/dL (70-110); Iron 155 UG/DL (65-175); Magnesium 2.3 mg/dL (1.5-2.4); Phosphorus 3.6 mg/dL (2.4-5.1); Potassium 4.1 mmol/L (3.5-5.5); Sodium 142 mmol/L (135-145); Total Iron Binding Capacity 431 UG/DL (228-460); Uric Acid 6.3 mg/dL (3.7-8.7)
[2023-08-30 16:11] LABS: Albumin 4.2 g/dL (3.8-4.9); Ferritin 48.8 ng/mL (22.0-322.0)
[2023-08-30 16:20] LABS: Hepatitis A Antibody IgM Nonreactive; Hepatitis B Core IgM Nonreactive; Hepatitis B Surface Antigen Nonreactive; Hepatitis C IgG Antibody Nonreactive
[2023-08-30 16:46] LABS: Appearance,Urine Clear (Clear); Bilirubin,Urine Negative (Negative); Blood,Urine Negative (Negative); Color,Urine Yellow (Yellow); Ketones,Urine Negative (Negative); Nitrite,Urine Negative (Negative); PH, Urine 5.5; Specific Gravity,Urine 1.017 (1.001-1.030); Urobilinogen,Urine 0.2 E.U./DL
[2023-08-30 16:51] LABS: Bacteria,Urine None Seen (None Seen)
[2023-08-30 16:59] LABS: Basophils # (A) 0.06 X 10*3/uL (0.00-0.10); Basophils % (A) 0.9 %; Eosinophils # (A) 0.09 X 10*3/uL (0.04-0.35); Eosinophils % (A) 1.4 %; HCT 42.4 % (39.6-50.0); HGB 13.6 g/dL (13.0-17.0); Lymphocytes # (A) 0.79 X 10*3/uL (0.90-5.00); MCH 30.5 pg (27.0-32.0); MCHC 32.1 g/dL (32.0-37.0); MCV 95.1 FL (80.0-97.0); Monocytes # (A) 0.71 X 10*3/uL (0.20-1.00); Monocytes % (A) 10.8 %; NRBC Per 100 WBC 0 X 10*3/uL (0.00-0.01); Neutrophils # (A) 4.91 X 10*3/uL (1.80-7.70); Neutrophils % (A) 74.7 %; Platelet Count 192 X 10*3/uL (140-440); RBC 4.46 X 10*6/uL (4.40-5.60); RDW 14.3 % (11.5-14.5); WBC 6.57 X 10*3/uL (4.50-10.00)
[2023-08-30 21:31] LABS: Anti-DNA, DS unit <1.0 IU/mL; DNA Double-Stranded Negative (Negative)
[2023-08-31 01:22] LABS: Urine Creatinine 84.8 mg/dL (39.0-259.0)
[2023-08-31 12:58] LABS: Free Kappa Lt Chain Qnt, Serum 5.71 mg/dL (0.33-1.94); Free Lambda Lt Chain Qnt, Seru 3.65 mg/dL (0.57-2.63)
[2023-08-31 14:02] LABS: C-ANCA <1:20 Titer (<1:20)
== END | disposition home or self-care (01) ==
LOC: LABWHC1 08:50
PROVIDERS: ATTEND Internal Medicine Nephrology
DX: N18.4 Chronic kidney disease, stage 4 (severe) (principal)
CPT/HCPCS: 36415; 80048; 80074; 81001; 82040; 82043; 82306; 82570; 82728; 83516; 83540; 83550; 83735; 83883; 83970; 84100; 84550; 85025; 86038; 86160; 86162; 86225; 86255; 86334

== ENCOUNTER 2023-11-12 19:40 | Emergency (ER) | payer BC, MEDICARE, OTHER ==
[2023-11-12 20:15] VITALS: TEMP 98
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
[2023-11-12 21:02] VITALS: BP 136/54; PULSE 55; RESP 16
== END 2023-11-12 20:37 | disposition home or self-care (01) ==
LOC: EC 19:40
DX: S51.012A Laceration without foreign body of left elbow, initial encounter (principal); Z87.891 Personal history of nicotine dependence; V43.52XA Car driver injured in collision with other type car in traffic accident, initial encounter
CPT/HCPCS: 99283

== ENCOUNTER → 2023-12-19 | Outpatient (CLI) | payer MEDICARE, BC ==
[2023-12-19 15:23] LABS: Appearance,Urine Clear (Clear); Bilirubin,Urine Negative (Negative); Blood,Urine Negative (Negative); Color,Urine Yellow (Yellow); Ketones,Urine Negative (Negative); Nitrite,Urine Negative (Negative); PH, Urine 5.5; Specific Gravity,Urine 1.016 (1.001-1.030); Urobilinogen,Urine 0.2 E.U./DL
[2023-12-19 15:29] LABS: Bacteria,Urine None Seen (None Seen)
[2023-12-19 16:16] LABS: Basophils # (A) 0.05 X 10*3/uL (0.00-0.10); Basophils % (A) 0.8 %; Eosinophils # (A) 0.17 X 10*3/uL (0.04-0.35); Eosinophils % (A) 2.7 %; HCT 38.4 % (39.6-50.0); HGB 12.5 g/dL (13.0-17.0); Lymphocytes # (A) 0.86 X 10*3/uL (0.90-5.00); Lymphocytes % (A) 13.8 %; MCHC 32.6 g/dL (32.0-37.0); MCV 98.2 FL (80.0-97.0); Mean Platelet Volume 10.6 FL (9.5-12.2); Monocytes # (A) 0.63 X 10*3/uL (0.20-1.00); Monocytes % (A) 10.1 %; NRBC Per 100 WBC 0 X 10*3/uL (0.00-0.01); Neutrophils % (A) 72.3 %; Platelet Count 163 X 10*3/uL (140-440); RBC 3.91 X 10*6/uL (4.40-5.60); RDW 13.6 % (11.5-14.5); WBC 6.23 X 10*3/uL (4.50-10.00)
[2023-12-19 16:23] LABS: % Iron Saturation 56.49 (15.00-50.00); Chloride 106 mmol/L (96-109); Glucose 201 mg/dL (70-110); Iron 222 UG/DL (65-175); Potassium 4.4 mmol/L (3.5-5.5); Sodium 138 mmol/L (135-145); Total Iron Binding Capacity 393 UG/DL (228-460)
[2023-12-19 16:24] LABS: BUN/Creat Ratio 14.96 Ratio (12.00-20.00); Blood Urea Nitrogen 34.4 mg/dL (9.0-27.0); Calcium 9.1 mg/dL (8.7-10.3); Ferritin 38.6 ng/mL (22.0-322.0)
[2023-12-19 22:59] LABS: Urine Creatinine 64.9 mg/dL (39.0-259.0)
== END | disposition home or self-care (01) ==
LOC: LABWHC1 09:48
PROVIDERS: ATTEND Internal Medicine Nephrology
DX: N18.4 Chronic kidney disease, stage 4 (severe) (principal)
CPT/HCPCS: 36415; 80048; 81001; 82043; 82306; 82570; 82728; 83540; 83550; 83970; 85025

== ENCOUNTER 2024-02-21 11:48 | Observation (INO) | payer MEDICARE, BC ==
--- NOTE | 2024-02-21 12:17 | ED ---
General Adult HPI - General Chief complaint: Extremity Injury, Lower Stated complaint: L hip pain Time Seen by Provider: 02/21/24 12:00 Source: patient Mode of arrival: ambulatory Limitations: no limitations - History of Present Illness Initial comments: Patient is an 83-year-old woman past med history of prior left hip arthroplasty presenting today for difficulty in left lower extreme. Patient states that he golfed yesterday without difficulty, no injuries sustained. When he woke up this morning he was unable to bear weight on the left leg. None to very minimal pain. No new numbness. - Related Data Home Medications Medication Instructions Recorded Confirmed Rivaroxaban [Xarelto] 20 mg PO W/SUPPER 09/30/16 02/21/24 Losartan Potassium [Cozaar] 100 mg PO DAILY 04/10/18 02/21/24 Metoprolol Tartrate [Lopressor] 100 mg PO DAILY 04/10/18 02/21/24 Metoprolol Tartrate [Lopressor] 50 mg PO HS 04/08/21 02/21/24 Dapagliflozin Propanediol [Farxiga] 5 mg PO DAILY 02/21/24 02/21/24 amLODIPine [Norvasc] 5 mg PO HS 02/21/24 02/21/24 calcitrioL 0.25 mcg PO MALONE 02/21/24 02/21/24 Allergies Allergy/AdvReac Type Severity Reaction Status Date / Time Iodinated Contrast Media AdvReac Cannot Verified 02/21/24 14:42 take due to kidney issues Review of Systems ROS Statement: Those systems with pertinent positive or pertinent negative responses have been documented in the HPI. Past Medical History Past Medical History: Atrial Fibrillation, Coronary Artery Disease (CAD), Cancer, Diabetes Mellitus, GERD/Reflux, Hyperlipidemia, Hypertension, Skin Disorder Additional Past Medical History / Comment(s): skin cancer/melanoma, hx kidney stone, see Dr. Knutson's H&P. History of Any Multi-Drug Resistant Organisms: None Reported Past Surgical History: AICD, Coronary Bypass/CABG, Heart Catheterization, Joint Replacement, Pacemaker Additional Past Surgical History / Comment(s): quad bypass 2013, skin cancer removed from around left eye, cystoscopy, left hip replacement, clari cataracts. See Dr. Velázquez's H&P. Past Anesthesia/Blood Transfusion Reactions: No Reported Reaction Type of Cardiac Device: Permanent Pacemaker, AICD Device Placement Date:: 04/2007 Past Psychological History: No Psychological Hx Reported Smoking Status: Former smoker Past Alcohol Use History: None Reported Past Drug Use History: None Reported - Past Family History Father Family Medical History: Cancer Additional Family Medical History / Comment(s): "black lung" and lung cancer Mother Family Medical History: Diabetes Mellitus Additional Family Medical History / Comment(s): at age 80 from complications of congestive heart failure and diabetes Daughter(s) Family Medical History: Diabetes Mellitus Son(s) Family Medical History: Diabetes Mellitus General Exam - General Exam Comments Initial Comments: PE: CONSTITUTIONAL: No apparent distress, well appearing SKIN: Warm, dry, no jaundice, hives or petechiae EYES: Pupils are equally round, extraocular movements intact without nystagmus, clear conjunctiva, non-icteric sclera HENT: Normocephalic, atraumatic, moist mucus membranes, oropharynx clear without exudates NECK: , Full range of motion, normal appearance PULMONARY: Clear to auscultation without wheezes, rhonchi, or rales, normal ex cursion, no accessory muscle use and no stridor CARDIOVASCULAR: Regular rate, rhythm, normal S1 and S2. No appreciated murmurs, rubs or gallops. No lower extremity edema, 2+ dorsalis pedis pulse GASTROINTESTINAL: Soft, non-tender, non-distended, no palpable masses, no rebound or guarding. No hepatosplenomegaly MUSCULOSKELETAL:, Left lower extremity slightly shortened and externally rotated, mild tenderness ovation of the left hip, other extremities have no gross deformity, no edema, redness, or swelling. No calf swelling ot TTP. NEUROLOGIC:_a/o x 3, GCS 15, normal mentation and speech. Moves all extremities x 4 without motor or sensory deficit PSYCHIATRIC:_normal mood and affect, thought process is clear and linear Limitations: no limitations Course Vital Signs 02/21/24 02/21/24 02/21/24 11:55 15:19 18:29 Temperature 97.7 F 98.0 F Pulse Rate 60 52 L 98 Respiratory 18 16 18 Rate Blood Pressure 153/71 174/75 172/71 O2 Sat by Pulse 97 99 98 Oximetry Medical Decision Making - Medical Decision Making Was pt. sent in by a medical professional or institution (, PA, BLOOD BANK BUSINESS MANAGER, urgent care, hospital, or halfway...) When possible be specific @ -No Did you speak to anyone other than the patient for history (EMS, parent, family, police, friend...)? What history was obtained from this source @ -Patient's granddaughter, RN at bedside assisted in providing history Did you review nursing and triage notes (agree or disagree)? Why? @ -I reviewed nursing and triage notes-states patient was out golfing and injured his hip yesterday, patient is unsure if he injured his hip while golfing, does not remember any injury Were old charts reviewed (outside hosp., previous admission, EMS record, old EKG, old radiological studies, urgent care reports/EKG's, halfway records)? Report findings @ -No old charts were reviewed no recent ED visits or hospital visits Differential Diagnosis (chest pain, altered mental status, abdominal pain women, abdominal pain men, vaginal bleeding, weakness, fever, dyspnea, syncope, headache, dizziness, GI bleed, back pain, seizure, CVA, palpatations, mental health, musculoskeletal)? @ -Differential diagnosis remains broad however top considerations include Muscular strain, contusion, ligament sprain, fracture, arthritis, dislocation, muscle spasm.... This is not meant to be in all inclusive list EKG interpreted by me (3pts min.). @None done X-rays interpreted by me (1pt min.). @ -There does not appear to be any fracture or dislocation CT interpreted by me (1pt min.). @ -None done U/S interpreted by me (1pt. min.). @ -None done What testing was considered but not performed or refused? (CT, X-rays, U/S, labs)? Why? @ -None What meds were considered but not given or refused? Why? @ -Considered administration of pain medications however patient denied pain currently Did you discuss the management of the patient with other professionals (professionals i.e. , PA, BLOOD BANK BUSINESS MANAGER, lab, RT, psych nurse, health care social worker, supervisor purification, teacher, chief science officer, complex case manager)? Give summary @ -No Was smoking cessation discussed for >3mins.? @ -No Was critical care preformed (if so, how long)? @ -No NoNoNoNoNoHospital courseNoneNoNoNoNoNoNoneNone doneNone doneNo old charts were reviewed I reviewed nursing and triage notesNo Were there social determinants of health that impacted care today? How? (Homelessness, low income, unemployed, alcoholism, drug addiction, transportation, low edu. Level, literacy, decrease access to med. care, long-term, rehab)? @ -No Was there de-escalation of care discussed even if they declined (Discuss DNR or withdrawal of care, Hospice)? DNR status @ -No What co-morbidities impacted this encounter? (DM, HTN, Smoking, COPD, CAD, Cancer, CVA, ARF, Chemo, Hep., AIDS, mental health diagnosis, sleep apnea, morbid obesity)? @ -None Was patient admitted / discharged? Hospital course, mention meds given and route, prescriptions, significant lab abnormalities, going to OR and other p ertinent info. @ -Hospital course Patient is a pleasant 83-year-old male presenting for difficulty bearing weight on the left lower extremity with associated mild left hip pain, suspects left hip dislocation vs fracture. Pt hypertensive, afebrile. Left lower extremity is neurovascularly intact, distal extremity warm and well-perfused. Minimal tenderness left palpation left hip, left lower extremity does appear somewhat shortened and externally rotated. Will obtain plain films. Patient otherwise comfortable, declined pain medications at this point. X-ray with possible loosening of the left hip prosthetic. Patient unable to bear weight, and at time is able to bear weight but unstable. Patient's orthopedic surgeon is out of town, Dr. Case and does not have partners covering him. Discussed with city call for ortho, Deidra Van, [place], with Dr. Moore, recs admit to medicine and ortho will consult for further recs. Discussed with patient, he is comfortable with plan for admission. Patient admitted to Dr. Perez in stable condition. Undiagnosed new problem with uncertain prognosis? @ -No Drug Therapy requiring intensive monitoring for toxicity (Heparin, Nitro, Insulin, Cardizem)? @ -No Were any procedures done? @ -No Diagnosis/symptom? @ -Left hip injury Acute, or Chronic, or Acute on Chronic? @ -Acute Uncomplicated (without systemic symptoms) or Complicated (systemic symptoms)? @ Uncomplicated Side effects of treatment? @ -No Exacerbation, Progression, or Severe Exacerbation? @ -No Poses a threat to life or bodily function? How? (Chest pain, [place], [place], pneumonia, PE, COPD, DKA, ARF, appy, cholecystitis, CVA, Diverticulitis, Homicidal, Suicidal, threat to staff... and all critical care pts) @ Unlikely - Lab Data Result diagrams: 02/21/24 15:30 02/21/24 15:30 Disposition Clinical Impression: Injury of left hip Disposition: ADMITTED IP TO THIS HOSP Condition: Good
--- NOTE | 2024-02-21 13:10 | XR ---
EXAMINATION TYPE: XR Hip 2 views LT and AP Pelvis DATE OF EXAM: 02/21/2024 Comparison: None Clinical History: 83-year-old male unable to bear weight on left hip, hx hip replacement Findings: There is mild to moderate uniform joint space narrowing within the right hip with marginal spurring. There is a left hip total arthroplasty with femoral long stem. There is some lucency along the proxim al femoral stem in the intertrochanteric region measuring up to 6 mm. No acute fracture, subluxation or dislocation is seen. Vascular calcifications. Impression: 1. [id number] right hip OA. 2. Longstem left hip total arthroplasty shows no periprosthetic fracture. There is 6 mm of lucency al sedrick the proximal aspect of the femoral stem component. Correlate with any outside priors to assess st ability. If the finding is new, it could represent early loosening.
[2024-02-21] MEDS ORDERED: HYDROcodone/APAP 5-325MG 1 EACH TAB PO PRN (14:20)
[2024-02-21] MEDS ORDERED: CALCIUM CARBONATE 500 MG CHEWABLE PO PRN (14:20)
[2024-02-21] MEDS ORDERED: NALOXONE 0.4 MG/ML 1 ML VIAL IV PRN (14:20)
[2024-02-21] MEDS ORDERED: ACETAMINOPHEN TAB 325 MG TAB PO PRN (14:20)
[2024-02-21] MEDS ORDERED: MAG HYDROX/AL HYDROX/SIMETH 30 ML CUP PO PRN (14:20)
[2024-02-21 16:27] LABS: Basophils # (A) 0.1 k/uL (0-0.2); Basophils % (A) 1 %; Eosinophils # (A) 0.2 k/uL (0-0.7); Eosinophils % (A) 3 %; HCT 41.1 % (39.0-53.0); HGB 13.5 gm/dL (13.0-17.5); Lymphocytes # (A) 0.8 k/uL (1.0-4.8); Lymphocytes % (A) 14 %; MCH 31.4 pg (25.0-35.0); MCHC 32.9 g/dL (31.0-37.0); MCV 95.6 fL (80.0-100.0); Mean Platelet Volume 7.5; Monocytes # (A) 0.5 k/uL (0-1.0); Monocytes % (A) 10 %; Neutrophils # (A) 3.8 k/uL (1.3-7.7); Neutrophils % (A) 69 %; Platelet Count 169 k/uL (150-450); RDW 13.1 % (11.5-15.5); WBC 5.5 k/uL (3.8-10.6)
[2024-02-21 16:42] LABS: INR 1.1 (<1.2); Prothrombin Time 12.2 sec (10.0-12.5)
[2024-02-21 16:45] LABS: ALT 18 U/L (4-49); AST 35 U/L (17-59); African American GFR (CKD) 30 (>60 ml/min/1.73 sqM); Albumin 3.9 g/dL (3.5-5.0); Alkaline Phosphatase 72 U/L (38-126); Anion Gap 5 mmol/L; Blood Urea Nitrogen 31 mg/dL (9-20); Calcium 9.4 mg/dL (8.4-10.2); Carbon Dioxide 27 mmol/L (22-30); Chloride 108 mmol/L (98-107); Glucose 111 mg/dL (74-99); Non-African American GFR(CKD) 26 (>60 ml/min/1.73 sqM); Potassium 4.1 mmol/L (3.5-5.1); Sodium 140 mmol/L (137-145); Total Bilirubin 0.8 mg/dL (0.2-1.3); Total Protein 6.7 g/dL (6.3-8.2)
[2024-02-21 18:31] VITALS: RESP 18
[2024-02-21] MEDS: FAMOTIDINE 20 MG TAB PO SCH (23:07)
[2024-02-22 05:58] LABS: Glucose,Whole Blood 65 mg/dL (70-110)
[2024-02-22 06:14] LABS: Glucose,Whole Blood 74 mg/dL (70-110)
--- NOTE | 2024-02-22 09:10 | P.CNOR ---
History of Present Illness - [facility] Consult date: 02/22/24 Consult reason: joint pain (Left hip pain) History of present illness: patient is an 83-year-old male who presented to [facility] on 02/21/2024 with significant pain and difficulty ambulation of his left lower extremity. Patient apparently had been playing a lot of golf over the last few days and doing some housework where he was lifting heavier objects. He woke up yesterday with significant pain and difficulty with ambulation. Patient has a history of multiple total hip arthroplasty procedures done to the left hip by Dr. Case in [facility]. Apparently the patient did try to contact his orthopedic surgeon who is out of town, they advised the patient to be evaluated in the emergency room. Multiple lab test and imaging tests were done of the left hip after arrival to [facility]. Radiology did question some possible loosening, patient was admitted under internal medicine with our orthopedic team on consult. Patient was evaluated today at bedside, his granddaughter was also present. Patient is a relatively active male who golfs once or twice a week, he states over the last week or so he has increased that. He denies any trauma, this to include recent falls. He denies any illnesses recently. Patient has had 2 separate procedures on the hip, he had a [id number] hip which was revised he states about 5 to 6 years ago. Besides this incidence, he has had no issues with the left hip. Patient denies any pain to the right lower extremity, bilateral upper extremities. He denies any new onset numbness or tingling to the bilateral lower extremities, he denies any issues with bowel or bladder function. Review of Systems Constitutional: Reports as per [facility] Past Medical History Past Medical History: Atrial Fibrillation, Coronary Artery Disease (CAD), Cancer, Diabetes Mellitus, GERD/Reflux, Hyperlipidemia, Hypertension, Skin Disorder Additional Past Medical History / Comment(s): skin cancer/melanoma, hx kidney stone, see Dr. Knutson's H&P. History of Any Multi-Drug Resistant Organisms: None Reported Past Surgical History: AICD, Coronary Bypass/CABG, Heart Catheterization, Joint Replacement, Pacemaker Additional Past Surgical History / Comment(s): quad bypass 2013, skin cancer removed from around left eye, cystoscopy, left hip replacement, clari cataracts. See Dr. Velázquez's H&P. Past Anesthesia/Blood Transfusion Reactions: No Reported Reaction Type of Cardiac Device: Permanent Pacemaker, AICD Device Placement Date:: 04/2007 Past Psychological History: No Psychological Hx Reported Smoking Status: Former smoker Past Alcohol Use History: None Reported Additional Past Alcohol Use History / Comment(s): quit smoking 30 yrs ago, smoked from age 18 to age 40's, 1 PPD Past Drug Use History: None Reported - Past Family History Father Family Medical History: Cancer Additional Family Medical History / Comment(s): "black lung" and lung cancer Mother Family Medical History: Diabetes Mellitus Additional Family Medical History / Comment(s): at age 80 from complications of congestive heart failure and diabetes Daughter(s) Family Medical History: Diabetes Mellitus Son(s) Family Medical History: Diabetes Mellitus Medications and Allergies Home Medications Medication Instructions Recorded Confirmed Type Rivaroxaban [Xarelto] 20 mg PO W/SUPPER 09/30/16 02/21/24 History Losartan Potassium [Cozaar] 100 mg PO DAILY 04/10/18 02/21/24 History Metoprolol Tartrate [Lopressor] 100 mg PO DAILY 04/10/18 02/21/24 History Metoprolol Tartrate [Lopressor] 50 mg PO HS 04/08/21 02/21/24 History Dapagliflozin Propanediol [Farxiga] 5 mg PO DAILY 02/21/24 02/21/24 History amLODIPine [Norvasc] 5 mg PO HS 02/21/24 02/21/24 History calcitrioL 0.25 mcg PO MALONE 02/21/24 02/21/24 History Allergies Allergy/AdvReac Type Severity Reaction Status Date / Time Iodinated Contrast Media AdvReac Cannot Verified 02/21/24 14:42 take due to kidney issues Physical Examination Left lower extremity: No open lesions, sores, areas of erythema or soft tissue swelling present to the left hip region outpatient surrounding the greater troches, knee, lower leg, foot or ankle. He does demonstrate some generalized discomfort in the anterior lateral quadriceps muscle. Active and passive range of motion of the hip reproduces minimal if no discomfort, he is able to straight leg raise with no difficulty. Deep flexion along with internal and external rotation of the hip reproduce no pain, there is no obvious laxity present knee extension, knee flexion, plantarflexion, dorsiflexion, EHL, FHL are intact no obvious strength deficit appreciated when testing left lower extremity calf is soft, no tenderness with palpation sensory exam to light touch is intact throughout the extremity, dorsalis pedis pulses 2+ Results - Labs Labs: Abnormal Lab Results - Last 24 Hours (Table) 02/21/24 02/21/24 02/22/24 Range/Units 15:30 15:30 05:57 Lymphocytes # 0.8 L (1.0-4.8) k/uL Chloride 108 H (98-107) mmol/L BUN 31 H (9-20) mg/dL Creatinine 2.27 H (0.66-1.25) mg/dL Glucose 111 H (74-99) mg/dL POC Glucose (mg/dL) 65 L (70-110) mg/dL H & H 02/21/24 Range/Units 15:30 Hgb 13.5 (13.0-17.5) gm/dL Hct 41.1 (39.0-53.0) % Coagulation 02/21/24 Range/Units 15:30 INR 1.1 (<1.2) Result Diagrams: 02/21/24 15:30 02/21/24 15:30 - Diagnostic results Hip x-ray: report reviewed, image reviewed ( images of the left hip and pelvis were reviewed. No acute fractures or dislocations. No obvious lucencies to suggest obvious loosening present) Assessment and Plan Assessment: left hip pain left quadricep strain previous left total hip arthroplasty, stable other medical comorbidities Plan: I was able to discuss the case, this to include both physical exam findings and imaging studies and my attending Dr. Juares's and. No emergent orthopedic surgical intervention is recommended at this time recommend conservative measures, this to include icing of the left lower extremity, the use of Tylenol on a more regular basis for the next 7 to 10 days. Patient can utilize a cane as needed. Patient may weight-bear as tolerated at this time recommending patient avoid golfing and more strenuous activities for the next 5 to 7 days Recommend patient contact his orthopedic surgeon and follow-up with him in the next 7 to 10 days for recheck discharge planning: On orthopedic standpoint patient is stable for discharge Time with Patient: Less than 30
[2024-02-22 10:31] VITALS: BP 155/67; PULSE 60; TEMP 97.9
[2024-02-22 11:51] LABS: Glucose,Whole Blood 144 mg/dL (70-110)
--- NOTE | 2024-02-22 12:43 | P.HPIM ---
History of Present Illness H&P Date: 02/22/24 History of present illness; patient is a 83-year-old gentleman with past medical history significant for hypertension who presents the hospital for left hip pain. Patient history of prior left hip arthroplasty. Patient that he was all right yesterday when after golfing he started noticing that he was having increased left hip pain. Patient unable to bear any weight on the left leg. Patient had a hard time ambulating. There was no complaint of any fall. Denies any trauma. There was no complaint of fever or chills. Because of the left hip pain, patient presented to the ER. Initial lab work done in the ER showed WBC 5.5, hemoglobin 13.5, MCV 95.6, platelet count 169, sodium 140, potassium 4.1, BUN 31, creatinine 2.27, glucose 111, albumin 3.9 Left hip done showed possible loosening of the left hip prosthetic Patient admitted to internal medicine service REVIEW OF SYSTEMS: CONSTITUTIONAL: No fever, no malaise, no fatigue. HEENT: No recent visual problems or hearing problems. Denied any sore throat. CARDIOVASCULAR: No chest pain, orthopnea, PND, no palpitations, no syncope. PULMONARY: No shortness of breath, no cough, no hemoptysis. GASTROINTESTINAL: No diarrhea, no nausea, no vomiting, no abdominal pain. NEUROLOGICAL: No headaches, no weakness, no numbness. HEMATOLOGICAL: Denies any bleeding or petechiae. GENITOURINARY: Denies any burning micturition, frequency, or urgency. MUSCULOSKELETAL/RHEUMATOLOGICAL: Left hip pain ENDOCRINE: Denies any polyuria or polydipsia. The rest of the 14-point review of systems is negative. PHYSICAL EXAMINATION: GENERAL: The patient is alert and oriented x3, not in any acute distress. Well developed, well nourished. HEENT: Pupils are round and equally reacting to light. EOMI. No scleral icterus. No conjunctival pallor. Normocephalic, atraumatic. No pharyngeal erythema. No thyromegaly. CARDIOVASCULAR: S1 and S2 present. No murmurs, rubs, or gallops. PULMONARY: Chest is clear to auscultation, no wheezing or crackles. ABDOMEN: Soft, nontender, nondistended, normoactive bowel sounds. No palpable organomegaly. MUSCULOSKELETAL: No joint swelling or deformity. EXTREMITIES: No cyanosis, clubbing, or pedal edema. NEUROLOGICAL: Gross neurological examination did not reveal any focal deficits. SKIN: No rashes. Assessment and plan Left hip pain History of prior left hip arthroplasty History of atrial fibrillation History of coronary artery disease History of chronic systolic CHF Monitor vital signs Monitor CBC Monitor CMP Continue pain management per orthopedics Continue DVT prophylaxis per orthopedics Resume home meds PT and OT consulted Labs and medication were reviewed.. Continue same treatment. Continue with symptomatic treatment. Resume home medication. Monitor labs and vitals. DVT and GI prophylaxis. Further recommendations as per clinical course of the patient Dictation was produced using [employer] dictation software. please excuse any grammatical, word or spelling errors. Past Medical History Past Medical History: Atrial Fibrillation, Coronary Artery Disease (CAD), Cancer, Diabetes Mellitus, GERD/Reflux, Hyperlipidemia, Hypertension, Skin Diso rder Additional Past Medical History / Comment(s): skin cancer/melanoma, hx kidney stone, see Dr. Knutson's H&P. History of Any Multi-Drug Resistant Organisms: None Reported Past Surgical History: AICD, Coronary Bypass/CABG, Heart Catheterization, Joint Replacement, Pacemaker Additional Past Surgical History / Comment(s): quad bypass 2013, skin cancer removed from around left eye, cystoscopy, left hip replacement, clari cataracts. See Dr. Velázquez's H&P. Past Anesthesia/Blood Transfusion Reactions: No Reported Reaction Type of Cardiac Device: Permanent Pacemaker, AICD Device Placement Date:: 04/2007 Past Psychological History: No Psychological Hx Reported Smoking Status: Former smoker Past Alcohol Use History: None Reported Additional Past Alcohol Use History / Comment(s): quit smoking 30 yrs ago, smoked from age 18 to age 40's, 1 PPD Past Drug Use History: None Reported - Past Family History Father Family Medical History: Cancer Additional Family Medical History / Comment(s): "black lung" and lung cancer Mother Family Medical History: Diabetes Mellitus Additional Family Medical History / Comment(s): at age 80 from complications of congestive heart failure and diabetes Daughter(s) Family Medical History: Diabetes Mellitus Son(s) Family Medical History: Diabetes Mellitus Medications and Allergies Home Medications Medication Instructions Recorded Confirmed Type Rivaroxaban [Xarelto] 20 mg PO W/SUPPER 09/30/16 02/21/24 History Losartan Potassium [Cozaar] 100 mg PO DAILY 04/10/18 02/21/24 History Metoprolol Tartrate [Lopressor] 100 mg PO DAILY 04/10/18 02/21/24 History Metoprolol Tartrate [Lopressor] 50 mg PO HS 04/08/21 02/21/24 History Dapagliflozin Propanediol [Farxiga] 5 mg PO DAILY 02/21/24 02/21/24 History amLODIPine [Norvasc] 5 mg PO HS 02/21/24 02/21/24 History calcitrioL 0.25 mcg PO MALONE 02/21/24 02/21/24 History Allergies Allergy/AdvReac Type Severity Reaction Status Date / Time Iodinated Contrast Media AdvReac Cannot Verified 02/21/24 14:42 take due to kidney issues Physical Exam Vitals: Vital Signs Temp Pulse Pulse Resp BP BP Pulse Ox 02/22/24 08:00 18 02/22/24 01:35 98.2 F 58 L 18 154/66 98 02/21/24 21:00 58 L 18 02/21/24 20:29 50 L 18 162/66 97 02/21/24 18:29 98.0 F 98 18 172/71 98 02/21/24 15:19 52 L 16 174/75 99 02/21/24 11:55 97.7 F 60 18 153/71 97 Intake and Output 02/21/24 02/22/24 02/22/24 22:59 06:59 14:59 Other: # Voids 2 Weight 64.864 kg Results CBC & Chem 7: 02/21/24 15:30 02/21/24 15:30 Labs: Abnormal Lab Results - Last 24 Hours (Table) 02/21/24 02/21/24 02/22/24 Range/Units 15:30 15:30 05:57 Lymphocytes # 0.8 L (1.0-4.8) k/uL Chloride 108 H (98-107) mmol/L BUN 31 H (9-20) mg/dL Creatinine 2.27 H (0.66-1.25) mg/dL Glucose 111 H (74-99) mg/dL POC Glucose (mg/dL) 65 L (70-110) mg/dL Thrombosis Risk Factor Assmnt - Choose All That Apply Each Risk Factor Represents 3 Points: Age 75 years or older Thrombosis Risk Factor Assessment Total Risk Factor Score: 3 Thrombosis Risk Factor Assessment Level: Moderate Risk
--- NOTE | 2024-02-22 12:45 | P.DS ---
Providers Date of admission: 02/21/24 14:24 Expected date of discharge: 02/22/24 Attending physician: Genaro Perez MD Consults: 02/21/24 14:20 Consult Physician Routine Consulting Provider: Kush Moore Consult Reason/Comments: Prosthetic left hip malfunction Do you want consulting provider notified?: Already Contacted Primary care physician: [facility] Course: Discharge diagnoses; Left hip pain History of prior left hip arthroplasty History of atrial fibrillation History of coronary artery disease History of chronic systolic CHF Hospital course; patient is a 83-year-old gentleman with past medical history significant for hypertension who presents the hospital for left hip pain. Patient history of prior left hip arthroplasty. Patient that he was all right yesterday when after golfing he started noticing that he was having increased left hip pain. Patient unable to bear any weight on the left leg. Patient had a hard time ambulating. There was no complaint of any fall. Denies any trauma. There was no complaint of fever or chills. Because of the left hip pain, patient presented to the ER. Initial lab work done in the ER showed WBC 5.5, hemoglobin 13.5, MCV 95.6, platelet count 169, sodium 140, potassium 4.1, BUN 31, creatinine 2.27, glucose 111, albumin 3.9 Left hip done showed possible loosening of the left hip prosthetic Patient admitted to internal medicine service Was seen by orthopedics, patient left hip pain has improved, orthopedic recommended conservative management with rest and pain control. Currently patient is not requiring pain medications. Being discharged stable condition PHYSICAL EXAMINATION: GENERAL: The patient is alert and oriented x3, not in any acute distress. Well developed, well nourished. HEENT: Pupils are round and equally reacting to light. EOMI. No scleral icterus. No conjunctival pallor. Normocephalic, atraumatic. No pharyngeal erythema. No thyromegaly. CARDIOVASCULAR: S1 and S2 present. No murmurs, rubs, or gallops. PULMONARY: Chest is clear to auscultation, no wheezing or crackles. ABDOMEN: Soft, nontender, nondistended, normoactive bowel sounds. No palpable organomegaly. MUSCULOSKELETAL: No joint swelling or deformity. EXTREMITIES: No cyanosis, clubbing, or pedal edema. NEUROLOGICAL: Gross neurological examination did not reveal any focal deficits. SKIN: No rashes. Dictation was produced using [employer] dictation software. please excuse any grammatical, word or spelling errors. Patient Condition at Discharge: Good Plan - Discharge Summary Discharge Rx Participant: No New Discharge Prescriptions: Continue Rivaroxaban [Xarelto] 20 mg PO W/SUPPER Metoprolol Tartrate [Lopressor] 100 mg PO DAILY Losartan Potassium [Cozaar] 100 mg PO DAILY amLODIPine [Norvasc] 5 mg PO HS Metoprolol Tartrate [Lopressor] 50 mg PO HS calcitrioL 0.25 mcg PO MALONE Dapagliflozin Propanediol [Farxiga] 5 mg PO DAILY Discharge Medication List Rivaroxaban [Xarelto] 20 mg PO W/SUPPER 09/30/16 [History] Losartan Potassium [Cozaar] 100 mg PO DAILY 04/10/18 [History] Metoprolol Tartrate [Lopressor] 100 mg PO DAILY 04/10/18 [History] Metoprolol Tartrate [Lopressor] 50 mg PO HS 04/08/21 [History] Dapagliflozin Propanediol [Farxiga] 5 mg PO DAILY 02/21/24 [History] amLODIPine [Norvasc] 5 mg PO HS 02/21/24 [History] calcitrioL 0.25 mcg PO MALONE 02/21/24 [History] Follow up Appointment(s)/Referral(s): [facility] [NON-STAFF] - As Needed (farida) Oswaldo Colon MD [Primary Care Provider] - 1-2 days Discharge Disposition: HOME SELF-CARE
== END 2024-02-22 15:16 | disposition home or self-care (01) ==
LOC: EC 11:48 → 4SSUR 14:24
PROVIDERS: ADMIT Internal Medicine; ATTEND Internal Medicine
DX: S76.112A Strain of left quadriceps muscle, fascia and tendon, initial encounter (principal); Z96.642 Presence of left artificial hip joint; I11.0 Hypertensive heart disease with heart failure; I50.22 Chronic systolic (congestive) heart failure; I48.91 Unspecified atrial fibrillation; I25.10 Atherosclerotic heart disease of native coronary artery without angina pectoris; X50.0XXA Overexertion from strenuous movement or load, initial encounter; Z79.01 Long term (current) use of anticoagulants; Z79.84 Long term (current) use of oral hypoglycemic drugs; Z79.899 Other long term (current) drug therapy; Z91.041 Radiographic dye allergy status; Z87.891 Personal history of nicotine dependence
CPT/HCPCS: 73502; 80053; 85025; 85610; 99284

== ENCOUNTER → 2024-04-28 | Outpatient (CLI) | payer MEDICARE, BC ==
[2024-04-28 19:30] LABS: Appearance,Urine Clear (Clear); Bilirubin,Urine Negative (Negative); Blood,Urine Negative (Negative); Color,Urine Yellow (Yellow); Ketones,Urine Negative (Negative); Nitrite,Urine Negative (Negative); PH, Urine 6.5; Specific Gravity,Urine 1.019 (1.001-1.030); Urobilinogen,Urine 0.2 E.U./DL
[2024-04-28 19:33] LABS: Bacteria,Urine None Seen (None Seen)
[2024-04-28 20:08] LABS: Basophils # (A) 0.04 X 10*3/uL (0.00-0.10); Basophils % (A) 0.6 %; Eosinophils # (A) 0.16 X 10*3/uL (0.04-0.35); Eosinophils % (A) 2.4 %; HGB 12.3 g/dL (13.0-17.0); Lymphocytes % (A) 16.5 %; MCH 30.9 pg (27.0-32.0); MCHC 32.4 g/dL (32.0-37.0); MCV 95.5 FL (80.0-97.0); Mean Platelet Volume 10.4 FL (9.5-12.2); Monocytes # (A) 0.76 X 10*3/uL (0.20-1.00); Monocytes % (A) 11.4 %; NRBC Per 100 WBC 0 X 10*3/uL (0.00-0.01); Neutrophils % (A) 68.8 %; Platelet Count 192 X 10*3/uL (140-440); RBC 3.98 X 10*6/uL (4.40-5.60); RDW 13.8 % (11.5-14.5); WBC 6.68 X 10*3/uL (4.50-10.00)
[2024-04-28 21:11] LABS: % Iron Saturation 15.94 (15.00-50.00); Iron 69 UG/DL (65-175); Magnesium 2.1 mg/dL (1.5-2.4); Phosphorus 3.1 mg/dL (2.4-5.1); Total Iron Binding Capacity 433 UG/DL (228-460); Uric Acid 6.3 mg/dL (3.7-8.7)
[2024-04-28 21:15] LABS: Blood Urea Nitrogen 33.8 mg/dL (9.0-27.0); Calcium 8.7 mg/dL (8.7-10.3); Carbon Dioxide 23.2 mmol/L (21.6-31.8); Chloride 108 mmol/L (96-109); Ferritin 38.3 ng/mL (22.0-322.0); Glucose 165 mg/dL (70-110); Potassium 4.1 mmol/L (3.5-5.5); Sodium 142 mmol/L (135-145)
== END | disposition home or self-care (01) ==
LOC: LABWHC1 13:09
PROVIDERS: ATTEND Internal Medicine Nephrology
DX: N18.4 Chronic kidney disease, stage 4 (severe) (principal); M10.9 Gout, unspecified
CPT/HCPCS: 36415; 80048; 81001; 82043; 82306; 82570; 82728; 83540; 83550; 83735; 83970; 84100; 84550; 85025

== ENCOUNTER 2024-06-21 17:55 | Emergency (ER) | payer MEDICARE, BC ==
[2024-06-21 18:13] LABS: Glucose,Whole Blood 67 mg/dL (70-110)
--- NOTE | 2024-06-21 18:28 | ED ---
General Adult HPI - General Chief complaint: Recheck/Abnormal Lab/Rx Stated complaint: confusion Time Seen by Provider: 06/21/24 17:57 Source: EMS Mode of arrival: EMS Limitations: no limitations - History of Present Illness Initial comments: Dictation was produced using [employer] dictation software. please excuse any grammatical, word or spelling errors. Chief Complaint: 84-year-old male presents to the emergency department for altered mental status History of Present Illness: Patient is an 84-year-old male he has multiple comorbidities. History of present illness obtained from patient along with patient's daughter and granddaughter at the bedside. Patient's granddaughter is in the medical field. Apparently at around 12:00 PM patient was last seen normal. At around 4 or 5 PM he was given dinner when all of a sudden he became describing family is aphasic. He was significant confused was not sure what to do with his dinner. Family states that his confusion appears to be improved however he still slow to speech. Patient denies any medical states at this time. The ROS documented in this emergency department record has been reviewed and confirmed by me. Those systems with pertinent positive or negative responses have been documented in the HPI. All other systems are other negative and/or noncontributory. - Related Data Home Medications Medication Instructions Recorded Confirmed Rivaroxaban [Xarelto] 20 mg PO W/SUPPER 09/30/16 02/21/24 Losartan Potassium [Cozaar] 100 mg PO DAILY 04/10/18 02/21/24 Metoprolol Tartrate [Lopressor] 100 mg PO DAILY 04/10/18 02/21/24 Metoprolol Tartrate [Lopressor] 50 mg PO HS 04/08/21 02/21/24 Dapagliflozin Propanediol [Farxiga] 5 mg PO DAILY 02/21/24 02/21/24 amLODIPine [Norvasc] 5 mg PO HS 02/21/24 02/21/24 calcitrioL 0.25 mcg PO MALONE 02/21/24 02/21/24 Allergies Allergy/AdvReac Type Severity Reaction Status Date / Time Iodinated Contrast Media AdvReac Cannot Verified 06/21/24 18:14 take due to kidney issues Review of Systems ROS Statement: Those systems with pertinent positive or pertinent negative responses have been documented in the HPI. ROS Other: All systems not noted in ROS Statement are negative. Past Medical History Past Medical History: Atrial Fibrillation, Coronary Artery Disease (CAD), Cancer, Diabetes Mellitus, GERD/Reflux, Hyperlipidemia, Hypertension, Skin Disorder Additional Past Medical History / Comment(s): skin cancer/melanoma, hx kidney stone, see Dr. Knutson's H&P. History of Any Multi-Drug Resistant Organisms: None Reported Past Surgical History: AICD, Coronary Bypass/CABG, Heart Catheterization, Joint Replacement, Pacemaker Additional Past Surgical History / Comment(s): quad bypass 2014, skin cancer removed from around left eye, cystoscopy, left hip replacement, clari cataracts. See Dr. Velázquez's H&P. Past Anesthesia/Blood Transfusion Reactions: No Reported Reaction Type of Cardiac Device: Permanent Pacemaker, AICD Device Placement Date:: 04/2007 Past Psychological History: No Psychological Hx Reported Smoking Status: Former smoker Past Alcohol Use History: None Reported Past Drug Use History: None Reported - Past Family History Father Family Medical History: Cancer Additional Family Medical History / Comment(s): "black lung" and lung cancer Mother Family Medical History: Diabetes Mellitus Additional Family Medical History / Comment(s): at age 80 from complications of congestive heart failure and diabetes Daughter(s) Family Medical History: Diabetes Mellitus Son(s) Family Medical History: Diabetes Mellitus General Exam - General Exam Comments Initial Comments: PHYSICAL EXAM: General Impression: Alert and oriented x3, not in acute distress HEENT: Normocephalic atraumatic, extra-ocular movements intact, pupils equal and reactive to light bilaterally, mucous membranes moist. Cardiovascular: Heart regular rate and rhythm Chest: Able to complete full sentences, no retractions, no tachypnea Abdomen: abdomen soft, non-tender, non-distended, no organomegaly Musculoskeletal: Pulses present and equal in all extremities, no peripheral edema Motor: no focal deficits noted Neurological: CN II-XII grossly intact, no focal motor or sensory deficits noted, NIH of 0 Skin: Intact with no visualized rashes Psych: Normal affect and mood Limitations: no limitations Course Vital Signs 06/21/24 18:02 Pulse Rate 54 L Respiratory 17 Rate Blood Pressure 184/66 O2 Sat by Pulse 97 Oximetry Medical Decision Making - Medical Decision Making Was pt. sent in by a medical professional or institution (, PA, RESIDENT INTERN, urgent care, hospital, or half-way...) When possible be specific @ -No Did you speak to anyone other than the patient for history (EMS, parent, family, police, friend...)? What history was obtained from this source @ -No Did you review nursing and triage notes (agree or disagree)? Why? @ -I reviewed and agree with nursing and triage notes Were old charts reviewed (outside hosp., previous admission, EMS record, old EKG, old radiological studies, urgent care reports/EKG's, half-way records)? Report findings @ -No old charts were reviewed Differential Diagnosis (chest pain, altered mental status, abdominal pain women, abdominal pain men, vaginal bleeding, musculoskeletal, weakness, fever, d yspnea, syncope, headache, dizziness, GI bleed, back pain, seizure, CVA, palpatations, mental health)? @ -Differential altered mental status EKG interpreted by me (3pts min.). @ -My EKG interpretation: Ventricular rate 51, ventricular paced rhythm,. 128, QRS 126, QTc 476. No ND prolongation, no QTC prolongation, no ST or T-wave changes noted. Overall, this EKG is unremarkable X-rays interpreted by me (1pt min.). @ -None done CT interpreted by me (1pt min.). @ -CT scan of brain shows no acute processes U/S interpreted by me (1pt. min.). @ -None done What testing was considered but not performed or refused? (CT, X-rays, U/S, labs)? Why? @ -None What meds were considered but not given or refused? Why? @ -None Was smoking cessation discussed for >3mins.? @ -No Were there social determinants of health that impacted care today? How? (Homelessness, low income, unemployed, alcoholism, drug addiction, transportation, low edu. Level, literacy, decrease access to med. care, skilled nursing, rehab)? @ -No Was there de-escalation of care discussed even if they declined (Discuss DNR or withdrawal of care, Hospice)? DNR status @ -No What co-morbidities impacted this encounter? (DM, HTN, Smoking, COPD, CAD, Cancer, CVA, ARF, Chemo, Hep., AIDS, mental health diagnosis, sleep apnea, morbid obesity)? @ -Diabetes, A-fib Was patient admitted / discharged? Hospital course, mention meds given and route, prescriptions, significant lab abnormalities, going to OR and other pertinent info. @ -84-year-old male brought to the emergency department for altered mental status he does not have any focal neurologic deficits at the bedside. Concern that patient was aphasic. It seems according to family that he appeared to be more as opposed to aphasic. Laboratory evaluation obtained. CBC, coag panel metabolic panel within acceptable limits except for hyperglycemia 53. Patient's hypoglycemia is treated orally. His sugar was improved to 108 does not take any insulin. He does take oral antihyperglycemic's. He does not have any acidosis on his lab evaluation. CT is negative. Patient offered observation admission however patient's granddaughter is in the medical field and will watch over patient and maintain his sugar. Return precautions discussed. Family is agreeable to plan. Did you discuss the management of the patient with other professionals (professionals i.e. , PA, RESIDENT INTERN, lab, RT, psych nurse, social media community manager, quill buncher and sorter, teacher, investigation officer, case managers)? Give summary @ -No Was critical care preformed (if so, how long)? @ -No Undiagnosed new problem with uncertain prognosis? @ -No Drug Therapy requiring intensive monitoring for toxicity (Heparin, Nitro, Insulin, Cardizem)? @ -No Were any procedures done? @ -No Diagnosis/symptom? Acute, or Chronic, or Acute on Chronic? Uncomplicated (without systemic symptoms) or Complicated (systemic symptoms)? @ -hypoglycemia Side effects of treatment? @ -No Exacerbation, Progression, or Severe Exacerbation? @ -No Poses a threat to life or bodily function? How? (Chest pain, USA, PA, pneumonia, PE, COPD, DKA, ARF, appy, cholecystitis, CVA, Diverticulitis, Homicidal, Suicidal, threat to staff... and all critical care pts) @ -yes - Lab Data Result diagrams: 06/21/24 17:45 06/21/24 17:45 Lab Results 06/21/24 06/21/24 06/21/24 Range/Units 17:45 17:45 17:45 WBC 4.9 (3.8-10.6) k/uL RBC 3.83 L (4.30-5.90) m/uL Hgb 12.0 L (13.0-17.5) gm/dL Hct 36.5 L (39.0-53.0) % MCV 95.1 (80.0-100.0) fL MCH 31.3 (25.0-35.0) pg MCHC 32.9 (31.0-37.0) g/dL RDW 13.7 (11.5-15.5) % Plt Count 130 L (150-450) k/uL MPV 7.8 Neutrophils % 65 % Lymphocytes % 15 % Monocytes % 14 % Eosinophils % 2 % Basophils % 0 % Neutrophils # 3.2 (1.3-7.7) k/uL Lymphocytes # 0.7 L (1.0-4.8) k/uL Monocytes # 0.7 (0-1.0) k/uL Eosinophils # 0.1 (0-0.7) k/uL Basophils # 0.0 (0-0.2) k/uL PT 11.0 (10.0-12.5) sec INR 1.0 (<1.2) APTT 25.9 (22.0-30.0) sec Sodium 136 L (137-145) mmol/L Potassium 3.7 (3.5-5.1) mmol/L Chloride 102 (98-107) mmol/L Carbon Dioxide 23 (22-30) mmol/L Anion Gap 11 mmol/L BUN 42 H (9-20) mg/dL Creatinine 2.40 H (0.66-1.25) mg/dL Est GFR (CKD-EPI)AfAm 28 (>60 ml/min/1.73 sqM) Est GFR (CKD-EPI)NonAf 24 (>60 ml/min/1.73 sqM) Glucose 53 L (74-99) mg/dL POC Glucose (mg/dL) (70-110) mg/dL POC Glu Seed Sorter ID Calcium 8.6 (8.4-10.2) mg/dL 06/21/24 06/21/24 Range/Units 18:11 19:07 WBC (3.8-10.6) k/uL RBC (4.30-5.90) m/uL Hgb (13.0-17.5) gm/dL Hct (39.0-53.0) % MCV (80.0-100.0) fL MCH (25.0-35.0) pg MCHC (31.0-37.0) g/dL RDW (11.5-15.5) % Plt Count (150-450) k/uL MPV Neutrophils % % Lymphocytes % % Monocytes % % Eosinophils % % Basophils % % Neutrophils # (1.3-7.7) k/uL Lymphocytes # (1.0-4.8) k/uL Monocytes # (0-1.0) k/uL Eosinophils # (0-0.7) k/uL Basophils # (0-0.2) k/uL PT (10.0-12.5) sec INR (<1.2) APTT (22.0-30.0) sec Sodium (137-145) mmol/L Potassium (3.5-5.1) mmol/L Chloride (98-107) mmol/L Carbon Dioxide (22-30) mmol/L Anion Gap mmol/L BUN (9-20) mg/dL Creatinine (0.66-1.25) mg/dL Est GFR (CKD-EPI)AfAm (>60 ml/min/1.73 sqM) Est GFR (CKD-EPI)NonAf (>60 ml/min/1.73 sqM) Glucose (74-99) mg/dL POC Glucose (mg/dL) 67 L 108 (70-110) mg/dL POC Glu Seed Sorter ID Rudolph Aponte [facility] Calcium (8.4-10.2) mg/dL Disposition Clinical Impression: Hypoglycemia Disposition: HOME SELF-CARE Condition: Fair Instructions (If sedation given, give patient instructions): Hypoglycemia in a Person with Diabetes (ED) Is patient prescribed a controlled substance at d/c from ED?: No Referrals: Oswaldo Colon MD [Primary Care Provider] - 1-2 days Time of Disposition: 19:28
[2024-06-21 18:38] LABS: Basophils % (A) 0 %; Eosinophils # (A) 0.1 k/uL (0-0.7); Eosinophils % (A) 2 %; HCT 36.5 % (39.0-53.0); Lymphocytes # (A) 0.7 k/uL (1.0-4.8); Lymphocytes % (A) 15 %; MCH 31.3 pg (25.0-35.0); MCHC 32.9 g/dL (31.0-37.0); MCV 95.1 fL (80.0-100.0); Mean Platelet Volume 7.8; Monocytes # (A) 0.7 k/uL (0-1.0); Monocytes % (A) 14 %; Neutrophils # (A) 3.2 k/uL (1.3-7.7); Neutrophils % (A) 65 %; Platelet Count 130 k/uL (150-450); RBC 3.83 m/uL (4.30-5.90); RDW 13.7 % (11.5-15.5); WBC 4.9 k/uL (3.8-10.6)
[2024-06-21 18:55] LABS: African American GFR (CKD) 28 (>60 ml/min/1.73 sqM); Anion Gap 11 mmol/L; Blood Urea Nitrogen 42 mg/dL (9-20); Calcium 8.6 mg/dL (8.4-10.2); Carbon Dioxide 23 mmol/L (22-30); Chloride 102 mmol/L (98-107); Glucose 53 mg/dL (74-99); Non-African American GFR(CKD) 24 (>60 ml/min/1.73 sqM); Potassium 3.7 mmol/L (3.5-5.1); Sodium 136 mmol/L (137-145)
[2024-06-21 19:00] LABS: Partial Thromboplastin Time 25.9 sec (22.0-30.0)
[2024-06-21 19:08] LABS: Glucose,Whole Blood 108 mg/dL (70-110)
--- NOTE | 2024-06-21 19:09 | CT ---
EXAMINATION TYPE: CT brain wo con DATE OF EXAM: 06/21/2024 6:48 PM COMPARISON: None. CLINICAL INDICATION: Male, 84 years old with history of aphasia, AMS. Aphasia. TECHNIQUE: Brain: Axial CT images of the brain were obtained with coronal and sagittal reformats created and rev iewed. Contrast used: None. Oral contrast used: None. CT DLP: 1080.4 mGycm, Automated exposure control for dose reduction was used. FINDINGS: Brain: Extra-axial spaces: No abnormal extra-axial fluid collections. Ventricular system: Dilatation in proportion to cerebral atrophy. Cerebral parenchyma: Cerebral atrophy. No acute intraparenchymal hemorrhage or mass effect. The delaney -white junction is well differentiated. Scattered hypoattenuating areas are seen within the white mat ter. Cerebellum: Unremarkable. Mass effect: No evidence of midline shift. Intracranial vasculature: Atherosclerotic calcifications of the intracranial vessels. Soft tissues: Normal. Calvarium/osseous structures: No depressed skull fracture. Paranasal sinuses and mastoid air cells: Mild scattered paranasal sinus disease. Visualized orbits: Bilateral aphakia IMPRESSION: 1. No acute intracranial process. 2. Nonspecific white matter changes, likely secondary to chronic small vessel ischemic disease. [facility], , 06/21/2024 7:07 PM
[2024-06-21 19:54] VITALS: BP 167/79; PULSE 59; RESP 16; TEMP 97.8
== END 2024-06-21 19:54 | disposition home or self-care (01) ==
LOC: EC 17:55
DX: E11.649 Type 2 diabetes mellitus with hypoglycemia without coma (principal); I48.91 Unspecified atrial fibrillation; Z87.891 Personal history of nicotine dependence; Z91.041 Radiographic dye allergy status; Z79.84 Long term (current) use of oral hypoglycemic drugs
CPT/HCPCS: 36415; 70450; 80048; 85025; 85610; 85730; 99285

== ENCOUNTER → 2024-10-22 | Outpatient (CLI) | payer MEDICARE, BC ==
[2024-10-22 15:41] LABS: HCT 37.8 % (39.6-50.0); HGB 12.3 g/dL (13.0-17.0); MCH 31.3 pg (27.0-32.0); MCHC 32.5 g/dL (32.0-37.0); MCV 96.2 FL (80.0-97.0); Mean Platelet Volume 10.8 FL (9.5-12.2); NRBC Per 100 WBC 0 X 10*3/uL (0.00-0.01); Platelet Count 166 X 10*3/uL (140-440); RBC 3.93 X 10*6/uL (4.40-5.60); RDW 13.8 % (11.5-14.5)
[2024-10-22 15:47] LABS: % Iron Saturation 26.25 (15.00-50.00); Albumin 3.8 g/dL (3.8-4.9); BUN/Creat Ratio 13.92 Ratio (12.00-20.00); Blood Urea Nitrogen 36.2 mg/dL (9.0-27.0); Calcium 8.9 mg/dL (8.7-10.3); Carbon Dioxide 20.8 mmol/L (21.6-31.8); Chloride 104 mmol/L (96-109); Ferritin 70.5 ng/mL (22.0-322.0); Glucose 334 mg/dL (70-110); Iron 105 UG/DL (65-175); Magnesium 2.1 mg/dL (1.5-2.4); Potassium 4.4 mmol/L (3.5-5.5); Sodium 137 mmol/L (135-145); Total Iron Binding Capacity 400 UG/DL (228-460); Uric Acid 6.6 mg/dL (3.7-8.7)
[2024-10-22 21:28] LABS: Urine Creatinine 52.9 mg/dL (39.0-259.0)
== END | disposition home or self-care (01) ==
LOC: LABWHC1 10:56
PROVIDERS: ATTEND Internal Medicine Nephrology
DX: N18.4 Chronic kidney disease, stage 4 (severe) (principal)
CPT/HCPCS: 36415; 80048; 82040; 82043; 82306; 82570; 82728; 83540; 83550; 83735; 83970; 84100; 84550; 85027